=== PATIENT | female | born 1970 | race Caucasian/White ===

== ENCOUNTER 2016-08-03 22:09 | Emergency (ER) | payer OTHER ==
[~2016-08-03] VITALS: Ht 154.9 cm; Wt 61.7 kg
[~2016-08-03 22:09] MED LIST: DIAZ-165 PO; ELET40TA PO; ESCI1TAB18 PO; LEVOIUD PV; MEPE1TAB PO; ONDA4TAB7 SL
[2016-08-03 22:11] VITALS: TEMP 36.8; Ht 154.9 cm; Wt 61.7 kg
[2016-08-03] MEDS ORDERED: KETOROLAC TROMETHAMINE 60 MG/2 ML VIAL IM STA (22:25)
[2016-08-03] MEDS ORDERED: MoRPHine SULFATE 10 MG/ML CARP/VIAL IM STA (22:25)
[2016-08-03] MEDS ORDERED: PROMETHAZINE HCL INJ 25 MG/ML 1 ML VIAL IM STA (22:25)
[2016-08-03] MEDS ORDERED: HYDR-4079 PO (23:05)
[2016-08-03] MEDS ORDERED: SUMA1INJ5 SC (23:05)
[2016-08-03] MEDS ORDERED: RIZA10TA18 PO (23:05)
--- NOTE | 2016-08-03 23:52 | EMERGENCY ROOM VISIT NOTE ---
History Report prepared by Aria: Mckenzie Robin Under the Supervision of: Dr. Paul Shirley D.O. First contact with patient: 22:15 Chief Complaint: HEADACHE Stated Complaint: MIGRAINE History of Present Illness The patient is a 45 year old female who presents to the Emergency Room with complaints of worsening headache with onset this morning. She rates her pain as a 10/10. The patient states that the headache started gradually and got worse. The patient notes that this migraine is located on the left side of her head. The patient states that she has a history of migraines and relates that this migraine is like previous migraines. She relates that she often has migraines, as often as 3-4 days per week. The patient had a Botox shot this morning through pain management. She has nausea and is sensitive to light. She denies any focal weaknesses, fevers. She notes that this headache is unchanged from previous headaches in anyway. No neck stiffness. No fevers greater than 100.4. Source of History: patient Onset: this morning Position: head Symptom Intensity: 10/10 Quality: other (headache) Timing: worsening Associated Symptoms: + nausea, No fevers, No weakness Note: She is sensitive to light. Review of Systems See HPI for pertinent positives & negatives. A total of 10 systems reviewed and were otherwise negative. Past Medical & Surgical Medical Problems: (1) Kidney stone (2) Migraine (3) Tonsillectomy Family History Cancer Diabetes mellitus FH: migraines Gallbladder disease Hypertension Kidney disease Kidney stones Lung disease Social History Smoking Status: Never Smoker Alcohol Use: occasionally Drug Use: none Marital Status: in relationship Housing Status: lives with family, lives with significant other Occupation Status: employed Current/Historical Medications Scheduled Escitalopram Oxalate (Lexapro), 40 MG PO DAILY Hydrocodone/Acetaminophen 10MG/325MG ([place] 10MG/325MG), 1 TABLET PO BID Levonorgestrel (Iud) (Mirena), 20 MCG PV CONTINOUS Scheduled PRN Diazepam (Valium), 5 MG PO DAILY PRN for UNDECIDED Eletriptan (Relpax), 40 MG PO UD PRN for Migraine Meperidine Hcl (Demerol), 50 MG PO UD PRN for Headache Ondansetron (Zofran Odt), 4 MG SL Q6H PRN for Nausea Rizatriptan Benzoate (Maxalt), 10 MG PO DAILY PRN for Migraine Sumatriptan Succinate (Sumatriptan Succinate), 0.5 ML SC UD PRN for Migraine Allergies Coded Allergies: Hydromorphone (Verified Allergy, Mild, "FELT LIKE SKIN WAS CRAWLING", 08/11) Physical Exam Vital Signs Date Time Temp Pulse Resp B/P Pulse Ox O2 Delivery O2 Flow Rate FiO2 08/03/16 22:11 36.8 85 20 122/84 95 Room Air Physical Exam GENERAL: Laying in bed, disheveled, nontoxic, in mild distress EYE EXAM: normal conjunctiva, PERRL and EOM's intact OROPHARYNX: no exudate, no erythema, lips, buccal mucosa, and tongue normal and mucous membranes are moist NECK: supple, no nuchal rigidity, no adenopathy, non-tender, negative Brudzinski 's. LUNGS: Clear to auscultation. Normal chest wall mechanics HEART: no murmurs, S1 normal and S2 normal ABDOMEN: abdomen soft, non-tender, normo-active bowel sounds, no masses, no rebound or guarding. BACK: Back is symmetrical on inspection and there is no deformity, no midline tenderness, no CVA tenderness. SKIN: no rashes and no bruising UPPER EXTREMITIES: upper extremities are grossly normal. LOWER EXTREMITIES: No pitting edema. NEURO EXAM: Normal sensorium, cranial nerves II-XII intact, normal speech, no weakness of arms, no weakness of legs. No drift. Finger to nose intact. Gross sensation intact. Rapid alternating movement of upper extremities intact. Medical Decision & Procedures Medications Administered Medications (Trade) Dose Ordered Sig/[facility] Route Start Time Stop Time Status Last Admin Dose Admin Morphine Sulfate (MoRPHine SULFATE INJ) 8 mg NOW STAT IM 08/03/16 22:25 08/03/16 22:27 DC 08/03/16 22:37 8 MG Promethazine HCl (Phenergan Inj) 25 mg NOW STAT IM 08/03/16 22:25 08/03/16 22:27 DC 08/03/16 22:38 25 MG Ketorolac Tromethamine (Toradol Inj) 60 mg NOW STAT IM 08/03/16 22:25 08/03/16 22:27 DC 08/03/16 22:39 60 MG ED Course ED COURSE: Vital signs were reviewed and showed normal vital signs. The patients medical record was reviewed The above diagnostic studies were performed and reviewed. ED treatments and interventions as stated above. 2215: The patient was evaluated in room C11. A complete history and physical examination was performed. 2225: Toradol 60 mg IM, Phenergan 2 mg IM, Morphine Sulfate 8 mg IM 2335: Upon reevaluation, the patient is feeling better. I discussed my findings with the patient and she understands and agrees with the treatment plan. Based on the patients age, coexisting illnesses, exam and lab findings the decision to treat as an outpatient was made. The patient remained stable while under my care. The patient appeared well at the time of discharge. Medical Decision The patient is a 45 year old female who presents to the ED with complaints of headache. Differential Diagnosis includes but is not limited to headache, tension headache, cluster headache, migraine, subarachnoid hemorrhage, meningitis, mass, central venous thrombus, concussion, trauma and epidural/ subdural hemorrhage. Patient is a 45-year-old female with past medical history of migraines and presents the ER with a headache. Headache started is morning and progressively worsened. She notes that she had injections of Botox today for her migraines. She notes that this headache feels extremely similar to her previous headaches. She denies any focal weakness. She is completely neurologically intact. No nuchal rigidity. No signs of meningitis or encephalitis on exam. Vitals are stable. Patient was given IM Toradol, morphine and Phenergan. She had improvement of her symptoms. History of present illness was not consistent with SAH. Patient was discharged follow-up with primary care doctor and should not drive, work, operate heavy machinery for the next 12 hours. Discussed with Pt concerning signs and symptoms to watch out for. Pt was instructed to follow up with their PCP and discussed with the patient their option to return to the ED at anytime for persistent or worsening symptoms. The appropriate anticipatory guidance and out-patient management, including indications for return to the emergency department, were explained at length to the patient and understood. Impression Primary Impression: Cephalgia Scribe Attestation The scribe's documentation has been prepared under my direction and personally reviewed by me in its entirety. I confirm that the note above accurately reflects all work, treatment, procedures, and medical decision making performed by me. Departure Information Dispostion Home / Self-Care Referrals Clara Holguin, C.R.N.P. (PCP) Forms HOME CARE DOCUMENTATION FORM, IMPORTANT VISIT INFORMATION Patient Instructions A Signature Page, My [facility] Additional Instructions Please follow up with your primary care doctor with in the next 24 hours. Any worsening of your symptoms, please return to the ED immediately. This includes any fevers greater than 100.4, stiff neck, worsening neck pain, confusion, difficulty ambulating, or any other concerning signs or symptoms from your standpoint. Please do not drive, work, operate heavy machinery for the next 12 hours as your given narcotics. Problem Qualifiers Primary Impression: Cephalgia Headache type: unspecified Headache chronicity pattern: acute headache Intractability: not intractable Qualified Codes: R51 - Headache
[2016-08-04 00:08] VITALS: BP 107/67; PULSE 80; O2SAT 97
== END 2016-08-04 00:09 | disposition home or self-care (01) ==
LOC: C.EDB 22:09 → C.EDC 08-04 00:09
DX: G43.719 Chronic migraine without aura, intractable, without status migrainosus (principal); Z87.442 Personal history of urinary calculi; Z83.3 Family history of diabetes mellitus; Z82.49 Family history of ischemic heart disease and other diseases of the circulatory system; Z84.1 Family history of disorders of kidney and ureter; Z79.899 Other long term (current) drug therapy; M54.81 Occipital neuralgia; M79.1 Myalgia; F41.9 Anxiety disorder, unspecified

== ENCOUNTER → 2016-09-15 | Outpatient (CLI) | payer OTHER ==
[~2016-09-15] MED LIST changes: +HYDR-4079 PO; +RIZA10TA18 PO; +SUMA1INJ5 SC; +ZFRODT/8 SL
--- NOTE | 2016-09-15 15:33 | MAMMOGRAPHY REPORT ---
BILATERAL DIGITAL SCREENING MAMMOGRAM TOMOSYNTHESIS WITH CAD: 09/15/2016 CLINICAL HISTORY: Routine screening. Patient has no complaints. TECHNIQUE: Breast tomosynthesis in addition to standard 2D mammography was performed. Current study was also evaluated with a Computer Aided Detection (CAD) system. COMPARISON: Comparison is made to exams dated: 09/10/2015 mammogram, 08/15/2014 mammogram, 09/03/2014 ultrasound, 09/05/2012 ultrasound, 09/30/2010 mammogram - [facility], and 04/02/2009. BREAST COMPOSITION: The tissue of both breasts is extremely dense, which lowers the sensitivity of mammography. FINDINGS: There are a few bilateral benign-appearing microcalcifications and coarse calcifications. No new suspicious mass, architectural distortion or cluster of suspicious microcalcifications is se en. IMPRESSION: ACR BI-RADS CATEGORY 1: NEGATIVE There is no mammographic evidence of malignancy. A 1 year screening mammogram is recommended. The p atient will receive written notification of the results. Approximately 10% of breast cancers are not detected with mammography. A negative mammographic repor t should not delay biopsy if a clinically suggestive mass is present. Lani Patel M.D. ay/:09/15/2016 15:07:42 Pier Worker: Cyndi GREGORIO(Sherri)(Maxine), [facility] letter sent: Normal 1/2 BI-RADS Code: ACR BI-RADS Category 1: Negative
== END | disposition home or self-care (01) ==
LOC: C.MAMM 08:17
PROVIDERS: ATTEND Obstetrics & Gynecology
DX: Z12.31 Encounter for screening mammogram for malignant neoplasm of breast (principal)

== ENCOUNTER 2016-10-23 22:46 | Emergency (ER) | payer OTHER ==
[~2016-10-23] VITALS: Ht 154.9 cm; Wt 60.6 kg
[~2016-10-23 22:46] MED LIST changes: -ZFRODT/8 SL
[2016-10-23 22:47] VITALS: TEMP 36.7; Ht 154.9 cm; Wt 60.6 kg
[2016-10-23] MEDS ORDERED: MoRPHine SULFATE 10 MG/ML CARP/VIAL IM STA (22:59)
[2016-10-23] MEDS ORDERED: PROMETHAZINE HCL INJ 25 MG/ML 1 ML VIAL IM STA (22:59)
[2016-10-23] MEDS ORDERED: KETOROLAC TROMETHAMINE 60 MG/2 ML VIAL IM STA (22:59)
[2016-10-23] MEDS ORDERED: ZFRODT/8 SL (23:07)
[2016-10-23 23:32] VITALS: BP 121/72; PULSE 78; O2SAT 96
--- NOTE | 2016-10-24 00:43 | EMERGENCY ROOM VISIT NOTE ---
ED Visit Note First contact with patient: 22:52 CHIEF COMPLAINT: Migraine headache HISTORY OF PRESENT ILLNESS: This 46-year-old female patient presented to the emergency department with a gradual onset of a severe generalized headache that started earlier today. The patient states the migraine is similar to their typical migraines. There has been associated photophobia, phonophobia, nausea and vomiting. The patient denies fever or chills recently, and there is no weakness or numbness of the extremities. There is no difficulty with speech or vision. No trauma to the head and no neck pain. The pain is severe, constant, and it is slowly increasing in severity. The patient rates the pain as dull and 9/10. The patient has taken Imitrex at home without relief. This is not the worst headache of the life and is similar to previous migraines. Previous imaging studies of the brain have been normal. REVIEW OF SYSTEMS: A review of systems was performed with positives and pertinent negatives listed in the history of present illness. All other systems were reviewed and are negative. ALLERGIES: Dilaudid MEDICATIONS: See EMR PMH: History of chronic migraines SOCIAL HISTORY: Lives locally family PHYSICAL EXAM: Vital Signs: Reviewed Nurse's notes, vital signs stable. GENERAL: White female, who appears in pain, but non toxic in appearance and in no acute distress. MENTAL STATUS: Alert, oriented, and coherent. HEENT: Normocephalic. PERRLA. EOMI. Nares patent without nuchal rigidity. Tympanic membranes pearly franklin without erythema or effusion bilaterally. Mucous membranes moist. NECK: Supple, no nuchal rigidity, nontender, no lymphadenopathy. HEART: Regular rhythm and normal rate without murmurs, ectopy, gallops, or rubs. LUNGS: Clear to auscultation bilaterally without wheezes, rales or rhonchi. No dullness to percussion. No accessory muscle use. No retractions. SKIN: Normal. NEUROLOGICAL: Pupils are round, equal and react to light. The optic fundi are normal and the discs are flat. The patient moves all extremities well and the gait is normal. EMERGENCY DEPARTMENT COURSE: Physical history were performed. Nursing notes and EMR were reviewed. The patient appears to have a migraine headache that began earlier today. On review of EMR, the patient has a history of several visits for migraines, often 3-4 times annually. The patient does follow with the pain clinic, and undergoes Botox which seems to do well for her. She attempted her normal medication at home, and did not have relief of her symptoms. This is not the worst headache of her life. I discussed options of care with the patient, and elected to provide her 8 mg IM morphine, 60 mg IM Toradol, and 25 mg IM Phenergan. The patient is to follow with her primary care physician or neurologist this week for further care and management. She was otherwise invited back to the ER with any new, worsening, or concerning symptoms. The differential diagnosis includes acute intracranial bleed, meningitis, encephalitis, mass or mass effect, sinusitis, infection, tumor, headache, temporal arteritis and carbon monoxide exposure, and migraine. The patient was discharged home in stable condition with a female missile technician driving. Problem List Medical Problems: (1) Kidney stone Status: Resolved (2) Migraine Status: Chronic (3) Tonsillectomy Status: Resolved Current/Historical Medications Scheduled Escitalopram Oxalate (Lexapro), 40 MG PO DAILY Hydrocodone/Acetaminophen 10MG/325MG ([place] 10MG/325MG), 1 TABLET PO BID Levonorgestrel (Iud) (Mirena), 20 MCG PV CONTINOUS Scheduled PRN Diazepam (Valium), 5 MG PO DAILY PRN for UNDECIDED Eletriptan (Relpax), 40 MG PO UD PRN for Migraine Meperidine Hcl (Demerol), 50 MG PO UD PRN for Headache Ondansetron (Ondansetron Odt), 4 MG SL Q6H PRN for Nausea Rizatriptan Benzoate (Maxalt), 10 MG PO DAILY PRN for Migraine Sumatriptan Succinate (Sumatriptan Succinate), 0.5 ML SC UD PRN for Migraine Allergies Coded Allergies: Hydromorphone (Verified Allergy, Mild, "FELT LIKE SKIN WAS CRAWLING", ) Vital Signs Date Time Temp Pulse Resp B/P Pulse Ox O2 Delivery O2 Flow Rate FiO2 10/23/16 23:32 78 16 121/72 96 Room Air 10/23/16 22:47 36.7 87 20 116/72 95 Room Air Medications Administered Medications (Trade) Dose Ordered Sig/[place] Route Start Time Stop Time Status Last Admin Dose Admin Morphine Sulfate (MoRPHine SULFATE INJ) 8 mg NOW STAT IM 10/23/16 22:59 10/23/16 23:00 DC 10/23/16 23:06 8 MG Promethazine HCl (Phenergan Inj) 25 mg NOW STAT IM 10/23/16 22:59 10/23/16 23:00 DC 10/23/16 23:06 25 MG Ketorolac Tromethamine (Toradol Inj) 60 mg NOW STAT IM 10/23/16 22:59 10/23/16 23:00 DC 10/23/16 23:07 60 MG Departure Information Impression Primary Impression: Migraine Dispostion Home / Self-Care Condition GOOD Referrals No Doctor, Assigned Forms HOME CARE DOCUMENTATION FORM, IMPORTANT VISIT INFORMATION Patient Instructions My [facility] Additional Instructions You were seen and evaluated today on an emergency basis only. This is not a substitute for, or an effort to provide, complete comprehensive medical care. It is not possible to recognize and treat all injuries or illnesses in a single emergency department visit. For this reason it is recommended that you followup with your primary care physician or neurologist this week for ongoing care and evaluation. DO NOT drive, drink alcohol, operate machinery, or perform dangerous activities today. You were given medications in the ER that can affect your ability to safely function or operate a vehicle. Rest today in a quiet, peaceful, dark environment and get a full 8-10 hrs of sleep tonight. Avoid loud noises, smoke/smoking, alcohol, bright lights, stress, or physical exertion today to minimize the chance the headache may return. Continue current medications. Ibuprofen(Motrin, Advil) may be used for fever or pain. Use 600mg every six hours as needed. Take with food. Avoid using more than 2400mg in a 24 hour period. Do not use 2400mg per day for more than three consecutive days without physician direction. Prolonged inappropriate use can lead to stomach upset or ulcers. (AND/OR) Acetaminophen(Tylenol) may be used for fever or pain. Use 1000mg every six hours as needed. Avoid using more than 4000mg in a 24 hour period. Return to the ER for passing out, worsening headache, vision problems, neck stiffness/pain, fevers, vomiting, worsening of your condition, or as needed.
== END 2016-10-23 23:35 | disposition home or self-care (01) ==
LOC: C.EDB 22:46
DX: G43.909 Migraine, unspecified, not intractable, without status migrainosus (principal)

== ENCOUNTER → 2016-11-03 | Outpatient (CLI) | payer OTHER ==
[~2016-11-03] MED LIST changes: -ONDA4TAB7 SL; +ZFRODT/8 SL
--- NOTE | 2016-11-03 12:45 | DIAGNOSTIC IMAGING REPORT ---
CERVICAL SPINE 7 VIEWS with flexion and extension views HISTORY: Neck pain. Cervicalgia, cervical FACET SYNDROME COMPARISON: None. FINDINGS: The cervical spine is visualized from C1 through the superior endplate of T1. There is no fracture. 1.5 mm of anterolisthesis of C4 and C5. Severe disc space narrowing and endplate osteophytes at C5-C6. There are also endplate osteophytes at C6-C7. Mild facet degenerative changes within the upper cervical spine. Moderate left and mild right neural foraminal narrowing at C5-C6. The alignment is not significantly change during flexion or extension. Prevertebral soft tissues and the atlantodens interval are intact. IMPRESSION: 1. Approximately 1.5 mm of anterolisthesis of C4 on C5. The alignment is not significantly changed on flexion or extension. 2. Severe degenerative disease at C5-C6. 3. Mild facet degenerative changes within the upper cervical spine. Electronically signed by: Sammy Butt M.D. 11/03/2016 12:43 PM Dictated Date/Time: 11/03/2016 12:36 PM
== END | disposition home or self-care (01) ==
LOC: C.RADBC 09:40
PROVIDERS: ATTEND Physician Assistant
DX: M53.82 Other specified dorsopathies, cervical region (principal); M50.322 Other cervical disc degeneration at C5-C6 level; M43.12 Spondylolisthesis, cervical region

== ENCOUNTER → 2017-04-21 | Outpatient (CLI) | payer OTHER ==
--- NOTE | 2017-04-21 12:01 | DIAGNOSTIC IMAGING REPORT ---
KUB CLINICAL HISTORY: 46 years-old Female presenting with N20.0 Kidney stone on left [id number]. TECHNIQUE: Single supine view of the abdomen was obtained. COMPARISON: 11/06/2015. FINDINGS: Moderate stool burden throughout the mildly distended colon degrades evaluation of the kidneys and allowing for this limitation, the previously noted left renal calculus remains apparent, however, the potential right renal calculus is obscured or has passed. Multiple pelvic phleboliths unchanged in distribution. An intrauterine device remains present. Osseous structures normal. IMPRESSION: 1. Moderate stool burden in mildly distended colon degrades evaluation. 2. Stable left renal calculus. Nonvisualization of the potential right renal calculus seen on prior exam, possibly obscured or indicating passage. Electronically signed by: Skyler Alvarado M.D. 04/21/2017 12:00 PM Dictated Date/Time: 04/21/2017 11:58 AM
== END | disposition home or self-care (01) ==
LOC: C.RAD 11:24
PROVIDERS: ATTEND Urology
DX: N20.0 Calculus of kidney (principal)

== ENCOUNTER → 2017-05-23 | Outpatient (CLI) | payer OTHER | END | disposition home or self-care (01) | LOC: C.LAB1850 11:43 | PROVIDERS: ATTEND Nurse Practitioner Adult Health | DX: R30.0 Dysuria (principal) ==

== ENCOUNTER 2017-08-25 20:16 | Emergency (ER) | payer OTHER ==
[~2017-08-25] VITALS: Ht 154.9 cm; Wt 64.9 kg
[~2017-08-25 20:16] MED LIST changes: -ELET40TA PO; -HYDR-4079 PO; +LEVO1IUD2 INT UTER; -LEVOIUD PV; -MEPE1TAB PO; -RIZA10TA18 PO; -SUMA1INJ5 SC; -ZFRODT/8 SL
[2017-08-25 20:28] VITALS: TEMP 36.9; Ht 154.9 cm; Wt 64.9 kg
[2017-08-25] MEDS ORDERED: KETOROLAC TROMETHAMINE 30 MG/ML VIAL IV STA (20:42)
[2017-08-25] MEDS ORDERED: DiphenhydrAMINE HCL 50 MG/ML VIAL IV STA (20:42)
[2017-08-25] MEDS ORDERED: PROCHLORPERAZINE 5 MG/ML 2 ML VIAL IV STA (20:42)
[2017-08-25] MEDS ORDERED: SODIUM CHLORIDE 0.9% 1000ML 1,000 ML IV STA (20:42)
[2017-08-25] MEDS ORDERED: MEPE1TAB PO (21:14)
[2017-08-25] MEDS ORDERED: ELET40TA PO (21:14)
[2017-08-25] MEDS ORDERED: LXP/20 PO (21:17)
[2017-08-25] MEDS ORDERED: KETO10TA PO (22:08)
--- NOTE | 2017-08-25 22:10 | EMERGENCY ROOM VISIT NOTE ---
ED Visit Note First contact with patient: 20:32 CHIEF COMPLAINT: Migraine headache HISTORY OF PRESENT ILLNESS: This 46-year-old female patient presented to the emergency department ambulatory, with a male friend, with a gradual onset of a severe generalized headache that started approximately one month ago. The patient states the migraine is similar to their typical migraines. There has been associated photophobia, phonophobia, nausea and vomiting. The patient denies fever or chills recently, and there is no weakness or numbness of the extremities. There is no difficulty with speech or vision. No trauma to the head and no neck pain. The pain is severe, constant, and it is slowly increasing in severity. The patient rates the pain as throbbing and 8/10. Over the past month, the patient has taken Relpax, Maxalt, Imitrex, Vicodin, and she did have a Botox injection performed today. This is not the worst headache of the life and is similar to previous migraines. Previous imaging studies of the brain have been normal. REVIEW OF SYSTEMS: A review of systems was performed with positives and pertinent negatives listed in the history of present illness. All other systems were reviewed and are negative. ALLERGIES: Hydromorphone MEDICATIONS: Demerol, Relpax, Valium, Imitrex, Addis, Maxalt, Lexapro PMH: Migraines SOCIAL HISTORY: The patient lives locally with family. She denies drug, alcohol , tobacco use. PHYSICAL EXAM: Vital Signs: Reviewed Nurse's notes, vital signs stable. GENERAL : This is a 46-year-old white female, who appears in pain, but non toxic in appearance and in no acute distress. MENTAL STATUS: Alert, oriented, and coherent. HEENT: Normocephalic. PERRLA. EOMI. Nares patent without nuchal rigidity. Tympanic membranes pearly franklin without erythema or effusion bilaterally. Mucous membranes moist. NECK: Supple, no nuchal rigidity, nontender, no lymphadenopathy. HEART: Regular rhythm and normal rate without murmurs, ectopy, gallops, or rubs. LUNGS: Clear to auscultation bilaterally without wheezes, rales or rhonchi. No dullness to percussion. No accessory muscle use. No retractions. SKIN: Normal. NEUROLOGICAL: Pupils are round, equal and react to light. The optic fundi are normal and the discs are flat. The patient moves all extremities well and the gait is normal. EMERGENCY DEPARTMENT COURSE: I examined the patient. I did review the patient' s previous EMR, and noted that she has been given morphine, Toradol, and Phenergan in the past for her migraines. I did discuss with the patient that he ED protocol is to avoid narcotics and chronic migraine patient's if possible. I offered the patient IV fluids, Toradol, Compazine, and Benadryl as a first line treatment for her migraine. She was agreeable. The patient was given these medications. Upon reassessment, she is upright, moving around in the bed, and states her headache is somewhat better, but now her back hurts. She did not receive the entire bolus of IV fluids, but states she would like to go home. The patient was encouraged to follow up outpatient with her PCP and/ or neurologist for further management. She was given a prescription for Toradol to take at home for her migraine. Discharge instructions reviewed, and the patient was discharged home in good condition. The differential diagnosis includes acute intracranial bleed, meningitis, encephalitis, mass or mass effect, sinusitis, infection, tumor, headache, temporal arteritis and carbon monoxide exposure, and migraine. The patient was discharged home in stable condition with [] driving. I attest that I have personally reviewed the patient's current medication list. Patient was found to have normal blood pressure on screening and does not require follow-up. DIAGNOSIS: Migraine headache Problem List Medical Problems: (1) Kidney stone Status: Resolved (2) Migraine Status: Chronic (3) Tonsillectomy Status: Resolved Current/Historical Medications Scheduled Escitalopram Oxalate (Escitalopram Oxalate), 40 MG PO DAILY Hydrocodone/Acetaminophen 10MG/325MG (Addis 10MG/325MG), 1 TABLET PO BID Ketorolac Tromethamine (Toradol), 1 TAB PO TID Levonorgestrel (Iud) (Mirena), 20 MCG INT UTER CONTINOUS Scheduled PRN Diazepam (Valium), 5 MG PO DAILY PRN for Anxiety Eletriptan (Relpax), 40 MG PO UD PRN for Migraine Meperidine Hcl (Demerol), 50 MG PO UD PRN for Headache Ondansetron (Ondansetron Odt), 4 MG SL Q6H PRN for Nausea Rizatriptan Benzoate (Maxalt), 10 MG PO DAILY PRN for Migraine Sumatriptan Succinate (Sumatriptan Succinate), 0.5 ML SC UD PRN for Migraine Allergies Coded Allergies: Hydromorphone (Verified Allergy, Mild, "FELT LIKE SKIN WAS CRAWLING", 01/12) Vital Signs Date Time Temp Pulse Resp B/P (MAP) Pulse Ox O2 Delivery O2 Flow Rate FiO2 08/25/17 22:22 76 20 128/72 98 08/25/17 20:28 36.9 74 16 132/90 96 Room Air Medications Administered Medications (Trade) Dose Ordered Sig/[place] Route Start Time Stop Time Status Last Admin Dose Admin Ketorolac Tromethamine (Toradol Inj) 30 mg NOW STAT IV 08/25/17 20:42 08/25/17 20:46 DC 08/25/17 21:13 30 MG Prochlorperazine Edisylate (Compazine Inj) 10 mg NOW STAT IV 08/25/17 20:42 08/25/17 20:46 DC 08/25/17 21:13 10 MG Diphenhydramine HCl (Benadryl Inj) 50 mg NOW STAT IV 08/25/17 20:42 08/25/17 20:46 DC 08/25/17 21:12 50 MG Sodium Chloride 1,000 ml @ 999 mls/hr Q1H1M STAT IV 08/25/17 20:42 08/25/17 21:42 DC 08/25/17 21:13 999 MLS/HR Departure Information Impression Primary Impression: Migraine Dispostion Home / Self-Care Condition GOOD Prescriptions Ketorolac Tromethamine (TORADOL) 10 Mg Tab 1 TAB PO TID for 5 Days, #15 TAB Prov: Jessica Ndiaye PA-C 08/25/17 Referrals No Doctor, Assigned (PCP) Patient Instructions ED Headache Migraine, My [facility] Additional Instructions DO NOT drive, drink alcohol, operate machinery, or perform dangerous activities today. You were given medications in the ER that can affect your ability to safely function or operate a vehicle. Rest today in a quiet, peaceful, dark environment and get a full 8-10 hrs of sleep tonight. Avoid loud noises, smoke/smoking, alcohol, bright lights, stress, or physical exertion today to minimize the chance the headache may return. Continue current medications as prescribed. You were given a prescription of Toradol to be taken 3 times daily for the next 3-5 days. DO NOT TAKE OTHER NSAIDS (Ibuprofen, Naproxen, naprosyn, Advil, Motrin , Aleve) WHILE ON THIS MEDICATION. Ibuprofen(Motrin, Advil) may be used for fever or pain. Use 600mg every six hours as needed. Take with food. Avoid using more than 2400mg in a 24 hour period. Do not use 2400mg per day for more than three consecutive days without physician direction. Prolonged inappropriate use can lead to stomach upset or ulcers. DO NOT TAKE THIS MEDICATION WHILE TAKING TORADOL. (AND/OR) Acetaminophen(Tylenol) may be used for fever or pain. Use 1000mg every six hours as needed. Avoid using more than 3000mg in a 24 hour period. Return to the ER for passing out, worsening headache, vision problems, neck stiffness/pain, fevers, vomiting, worsening of your condition, or as needed. Follow up with your primary physician in 2-3 days for a recheck of your current condition. Problem Qualifiers Primary Impression: Migraine Migraine type: without aura Status migrainosus presence: with status migrainosus Intractability: intractable Qualified Codes: G43.011 - Migraine without aura, intractable, with status migrainosus
[2017-08-25 22:22] VITALS: BP 128/72; PULSE 76; O2SAT 98
[2017-08-25] MEDS ORDERED: SUMA1INJ5 SC (23:05)
[2017-08-25] MEDS ORDERED: RIZA10TA18 PO (23:05)
[2017-08-25] MEDS ORDERED: HYDR-4079 PO (23:05)
[2017-08-25] MEDS ORDERED: ZFRODT/8 SL (23:07)
== END 2017-08-25 22:23 | disposition home or self-care (01) ==
LOC: C.EDB 20:17 → C.EDD 22:23
DX: G43.011 Migraine without aura, intractable, with status migrainosus (principal)

== ENCOUNTER → 2017-09-06 | Outpatient (CLI) | payer OTHER ==
[~2017-09-06] MED LIST changes: +ELET40TA PO; -ESCI1TAB18 PO; +HYDR-4079 PO; +LXP/20 PO; +MEPE1TAB PO; +RIZA10TA18 PO; +SUMA1INJ5 SC; +ZFRODT/8 SL
== END | disposition home or self-care (01) ==
LOC: C.LABBFT 12:20
PROVIDERS: ATTEND Nurse Practitioner
DX: J02.9 Acute pharyngitis, unspecified (principal)

== ENCOUNTER → 2017-11-10 | Outpatient (CLI) | payer OTHER ==
--- NOTE | 2017-11-10 11:51 | DIAGNOSTIC IMAGING REPORT ---
KUB CLINICAL HISTORY: NEPHROLITHIASIS COMPARISON STUDY: 04/21/2017 FINDINGS: There is no pathologic bowel dilatation. An IUD is again visualized. Pelvic basin calcifications remain unchanged in orientation favoring phleboliths. There is a 7 mm linear calcification projected over the left kidney suspicious for a calculus. IMPRESSION: Stable left renal calculus. Electronically signed by: Ward Peterson M.D. 11/10/2017 11:49 AM Dictated Date/Time: 11/10/2017 11:48 AM
== END | disposition home or self-care (01) ==
LOC: C.RAD 11:30
PROVIDERS: ATTEND Urology
DX: N20.0 Calculus of kidney (principal)

== ENCOUNTER 2018-08-31 12:58 | Inpatient (IN) ==
[2018-08-31] MEDS ORDERED: ONDANSETRON INJ 2 MG/ML 2 ML VIAL IV STA (14:05)
[2018-08-31] MEDS ORDERED: SODIUM CHLORIDE 0.9% 1000ML 1,000 ML IV ONE (14:05)
[2018-08-31] MEDS ORDERED: ACETAMINOPHEN 1000 MG/100 ML IV IV STA (14:05)
[2018-08-31] MEDS ORDERED: KETOROLAC TROMETHAMINE 15 MG/ML VIAL IV STA (14:05)
[2018-08-31 14:10] LABS: Basophils # (auto) 0.05 K/uL (0-0.2); Basophils % (auto) 0.5 %; Eosinophils # (auto) 0.08 K/uL (0-0.5); Eosinophils % (auto) 0.8 %; Hematocrit (blood only) 42.5 % (37-47); Hemoglobin 13.7 g/dL (12.0-16.0); Immature Granulocytes # (auto) 0.02 K/uL (0.00-0.02); Immature Granulocytes % (auto) 0.2 %; Lymphocytes # (auto) 1.29 K/uL (1.2-3.4); Lymphocytes % (auto) 13.5 %; Mean Corpuscular Hgb Conc 32.2 g/dL (32-36); Mean Platelet Volume 10.6 fL (7.4-10.4); Monocytes # (auto) 0.81 K/uL (0.11-0.59); Monocytes % (auto) 8.5 %; Neutrophils # (auto) 7.28 K/uL (1.4-6.5); Neutrophils % (auto) 76.5 %; Platelet Count 284 K/uL (130-400); RDW Coefficient of Variation 14.8 % (11.5-14.5); Red Blood Count 4.72 M/uL (4.2-5.4); White Blood Count 9.53 K/uL (4.8-10.8)
[2018-08-31 14:13] LABS: Partial Thromboplastin Ratio 1.1; Partial Thromboplastin Time 27.5 Seconds (21.0-31.0); Prothrombin Time 10.3 Seconds (9.0-12.0)
[2018-08-31 14:20] LABS: Alanine Aminotransferase 114 U/L (12-78); Albumin Level 3.7 gm/dl (3.4-5.0); Aspartate Aminotransferase 86 U/L (15-37); BUN Creatinine Ratio 10.9 (10-20); Blood Urea Nitrogen 11 mg/dl (7-18); Calcium 8.6 mg/dl (8.5-10.1); Carbon Dioxide 28 mmol/L (21-32); Chloride 104 mmol/L (98-107); Creatinine Clr Calc Pharmacy 58.5 ml/min; Est GFR (African American) 74.8; Est GFR (Non-African American) 64.5; Glucose 112 mg/dl (70-99); Potassium 3.5 mmol/L (3.5-5.1); Sodium 139 mmol/L (136-145)
[2018-08-31 14:25] LABS: Albumin Globulin Ratio 0.9 (0.9-2); Alkaline Phosphatase 101 U/L (45-117); Bilirubin,Total 0.5 mg/dl (0.2-1); Total Protein 7.7 gm/dl (6.4-8.2); Troponin I < 0.015 ng/ml (0-0.045)
--- NOTE | 2018-08-31 14:31 | XRay Report ---
XR chest 1V portable HISTORY: 47 years-old Female CP acute atypical chest pain COMPARISON: KUB of same day, chest radiograph 08/21/2018 TECHNIQUE: Portable AP view of the chest FINDINGS: Cardiomediastinal and hilar silhouettes are within normal limits. Minimal linear subsegmental left ba silar atelectasis. No pneumothorax, pleural effusion, focal airspace consolidation or overt pulmonary edema. Bones of the chest appear grossly intact. IMPRESSION: No acute process. The above report was generated using voice recognition software. It may contain grammatical, syntax o r spelling errors. Electronically signed by: Hema Caceres M.D. 08/31/2018 2:30 PM
--- NOTE | 2018-08-31 14:34 | XRay Report ---
KUB CLINICAL HISTORY: left stent COMPARISON STUDY: CT of the abdomen and pelvis September 16, 2018. FINDINGS: A left ureteral stent is in place. Pelvic calcifications are unchanged and favor phlebolith s. Left renal calculi shown on CT of August 16, 2018 are not visualized on this exam, possibly due t o technique. Bowel gas pattern is normal. Intrauterine device is incidentally noted. IMPRESSION: 1. Left ureteral stent in place. No ureteral calculi identified. 2. Left renal calculi on CT of August 16, 2018 not visualized on this exam, possibly due to techniqu e. Electronically signed by: Harvey Landa M.D. 08/31/2018 2:32 PM
[2018-08-31 15:03] LABS: Appearance Urine Cloudy (Clear); Color Urine Orange
[2018-08-31 15:04] LABS: Specific Gravity Urine 1.021 (1.000-1.060)
[2018-08-31 15:07] LABS: Epithelial Cell Urine >30 /lpf (0-5); RBC Urine >30 /hpf (0-4); WBC Urine >30 /hpf (0-5)
[2018-08-31 15:08] LABS: Bacteria Urine 4+ (Negative)
--- NOTE | 2018-08-31 15:36 | Ultrasound Report ---
US renal/blad retro comp CLINICAL HISTORY: 47 years-old Female presenting with left stent, possible hydro. TECHNIQUE: Real-time grayscale and limited color Doppler ultrasound imaging of the kidneys and bladde r was performed. COMPARISON: Plain radiograph from earlier today, CT from 08/16/2018 and ultrasound from 05/12/2018. FINDINGS: Right kidney: Cortical thinning may be present. Right kidney measures 10.6 cm. No hydronephrosis. No sonographic evidence of calculus or mass. Left kidney: Normal echogenicity of renal parenchyma. Left kidney measures 11.1 cm. Mild pelvocaliect asis new from prior CT. No sonographic evidence of calculus or mass though calculi are present as dem onstrated on recent CT. Bladder: Incompletely distended resulting in apparent circumferential wall thickening. The left urete ral stent may be present in the urinary bladder though this is not well depicted. Bilateral ureteral jets not visualized. Other: None. IMPRESSION: 1. Mild left hydronephrosis. Poor visualization of the left ureteral stent. Electronically signed by: Skyler Alvarado M.D. 08/31/2018 3:35 PM
[2018-08-31] MEDS ORDERED: cefTRIAXone SODIUM 1,000 MG/50 ML BAG IV STA (15:45)
--- NOTE | 2018-08-31 16:11 | Emergency Department Note ---
Entered by Yvette Dorsey acting as a scribe for Fidencio Sharma MD History of Present Illness General Chief complaint: Fever Stated complaint: VOMITING,FEVER, HAD KIDNEY STONES REMOVED Time Seen by Provider: 08/31/18 13:57 Source: patient Mode of arrival: ambulatory Limitations: no limitations History of Present Illness Provider complaint: Chest pain, N/V Onset (ago): hour(s) greater than 10 Location: chest and abdomen Severity: moderate Maximum Pain Intensity: 5 Associated symptoms: + other (sweating, SOB, left flank pain) Treatments prior to arrival: other (percocet @ 0600) Patient is a 47 year old female presenting to the ED with chest pain and nausea/ vomiting. Patient states that she awoke in the middle of the night with chest pain. She notes that she started to have chest pain, which radiated across the chest and down the left arm. She describes this pain as pressure, rated a 7/10 , and it lasted for x1 hour. She shares she did try to sit in a chair to help subside the symptoms, but no improvement was made. She adds she did have associated sweating and SOB during the chest pains duration. Patient shares that she then fell back asleep after the episode, and awoke at 0600 with nausea and fever, and took x1 dose of her Percocet. At about 0800, she notes she was nauseous and started vomiting. She adds she had a fever of 101. Patient shares that she called her urologist, Dr. Mckinney, who was out of the office. His partner told her to report to the ED. Patient shares that she did have a basket procedure on her left flank region for 2 kidney stones x3 days ago. Patient states she did have a stent placed at the time of the procedure, and is scheduled to have it removed on 09/11.She notes she is currently on Cipro, and was placed on it prior to her procedure. She notes that she is unsure when she is scheduled to stop her Cipro. She also shares she did receive IV antibiotics before and during the procedure. Patient shares she still does have mild left flank discomfort, but denies any diarrhea, return of CP, or any other complaints or concerns at this time. She denies any personal or family history of [place]. She denies any personal history of high cholesterol, HTN, or diabetes. Home Medications Home Medications Medication Instructions Recorded Confirmed Type eletriptan 40 mg tablet 40 mg PO UD PRN 06/12/18 08/31/18 History hydrocodone 10 mg-acetaminophen 1 tab PO UD PRN 06/12/18 08/31/18 History 325 mg tablet ketorolac 10 mg tablet 10 mg PO Q6H PRN 06/12/18 08/31/18 History escitalopram 10 mg tablet 20 mg PO HS tab 07/26/18 08/31/18 History Botox Injection 1 dose UD PRN 08/18/18 08/31/18 History diazepam 5 mg PO UD PRN 08/18/18 08/31/18 History erenumab-aooe 1 dose SUBCUT UD PRN 08/18/18 08/31/18 History mirabegron [Myrbetriq] 50 mg PO HS 08/18/18 08/31/18 History prednisone 20 mg PO UD PRN 08/18/18 08/31/18 History sumatriptan succinate [Imitrex] 1 dose UD PRN 08/18/18 08/31/18 History ciprofloxacin HCl [Cipro] 500 mg PO BID #10 tab 08/28/18 08/31/18 Rx oxycodone-acetaminophen [Percocet] 1 tab PO Q8H PRN #20 tab 08/28/18 08/31/18 Rx phenazopyridine [Pyridium] 200 mg PO TID PRN #20 tab 08/28/18 08/31/18 Rx Allergies Allergy/AdvReac Type Severity Reaction Status Date / Time hydromorphone Allergy Mild "FELT LIKE Verified 08/31/18 14:02 SKIN WAS CRAWLING" Past Med/Surg History Medical History Anxiety disorder (Chronic) Depressive disorder (Chronic) Frequent UTI (Chronic) PT THINKS CURRENTLY HAS ONE, PT THINKS REASON FOR UPCOMING SURGERY Headache (Chronic) MIGRAINES History of nephrolithotomy with removal of calculi (Chronic) Hypothyroidism (Chronic) NO MEDS FOR Kidney stones (Chronic) Migraine (Chronic) Neck pain (Chronic) Nephrolithiasis (Chronic) Occipital neuralgia (Chronic) TMJ (temporomandibular joint syndrome) (Chronic) NEVER LOCKS Von Willebrand's disease (Chronic) Pt reports she had bruising and blood in her eye 20+ years ago, prompting testing. Has had DDAVP with previous surgeries and childbirth. Was told it is ' mild.' Had ESWL at [facility] [place] 2014 and was given DDAVP pre-op. Surgeon aware and to coordinate care. 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 and A total of 10 systems reviewed and were otherwise negative Physical Exam Vital Signs Vital Signs - 24 hr 08/31/18 13:01 08/31/18 13:46 08/31/18 16:08 Temperature 36.9 C Temperature Source Oral Sepsis Action Taken by Nursing No Action Required Pulse Rate 100 H Pulse Rate [Finger] 81 75 Pulse Rhythm Regular Pulse Strength Normal Respiratory Rate 20 15 18 Blood Pressure 108/77 Blood Pressure [Right Arm] 130/75 111/67 Blood Pressure Mean 87 Blood Pressure Mean [Right Arm] 93 81 Blood Pressure Position [Right Arm] Pulse Oximetry 94 94 94 Oxygen Delivery Method Room Air Room Air Room Air 08/31/18 17:21 08/31/18 17:44 08/31/18 18:13 Temperature 37 C Temperature Source Oral Sepsis Action Taken by Nursing Pulse Rate Pulse Rate [Finger] 70 71 Pulse Rhythm Pulse Strength Respiratory Rate 20 20 16 Blood Pressure Blood Pressure [Right Arm] 114/70 113/74 Blood Pressure Mean Blood Pressure Mean [Right Arm] 84 87 Blood Pressure Position [Right Arm] Lying Pulse Oximetry 94 94 95 Oxygen Delivery Method Room Air Room Air Room Air GENERAL: Patient is in no acute distress. HEENT: No acute trauma, normocephalic atraumatic, mucous membranes moist, no nasal congestion, no scleral icterus. NECK: No stridor, no adenopathy, no meningismus, trachea is midline. LUNGS: Clear to auscultation bilaterally, no wheeze, no rhonchi, breath sounds equal. HEART: Without murmurs gallops or rubs, regular rate and rhythm. ABDOMEN: Soft, bowel sounds positive, no hernias, no peritonitis. Mild tenderness to left upper lateral abdomen. EXTREMITIES: No cyanosis or edema, full range of motion of all the joints without pain or difficulty, no signs for acute trauma. NEUROLOGIC: Oriented x 3, no acute motor or sensory deficits, no focal weakness. SKIN: No rash, no jaundice, no diaphoresis. Course 1359: Past medical records reviewed. The patient was evaluated in room C05, and a complete history and physical examination were performed. 1605: Updated patient on results. Urologist discussion pending. 1628: Discussed case with Dr. Patel, [facility], who recommends patient stay overnight for IV antibiotics. 1630: Discussed patient case with Dr. Friedman, who accepts patient for admission. 1636: Updated patient on results and plan for admission. Patient is agreeable to plan. Administered Medications Escitalopram Oxalate (Lexapro) 20 mg PO HS MANSI Stop: 09/30/18 20:59 Last Admin: 08/31/18 21:21 Dose: 20 mg Potassium Chloride/Sodium Chloride (Normal Saline W/20 Meq Kcl) 20 meq in 1, 000 mls @ 80 mls/hr IV .[id number] MANSI Stop: 09/30/18 20:29 Last Admin: 08/31/18 20:41 Dose: 80 mls/hr Mirabegron (Myrbetriq Er) 50 mg PO HS MANSI Stop: 09/30/18 20:59 Last Admin: 08/31/18 21:21 Dose: 50 mg Ondansetron HCl (Zofran) 4 mg IV Q6H PRN PRN Reason: Nausea Stop: 09/30/18 17:58 Last Admin: 08/31/18 20:44 Dose: 4 mg Discontinued Medications Acetaminophen (Ofirmev) 1,000 mg IV NOW STA Stop: 08/31/18 14:06 Last Admin: 08/31/18 14:22 Dose: 1,000 mg Sodium Chloride (Nss 1000ml) 1,000 mls @ 999 mls/hr IV .[id number] ONE Stop: 08/31/18 15:05 Last Infusion: 08/31/18 15:49 Dose: 0 mls/hr Admin: 08/31/18 14:22 Dose: 999 mls/hr Ceftriaxone Sodium (Rocephin) 1,000 mg in 50 mls @ 100 mls/hr IV NOW STA Stop: 08/31/18 16:14 Last Infusion: 08/31/18 17:09 Dose: 0 mls/hr Admin: 08/31/18 16:08 Dose: 100 mls/hr Ketorolac Tromethamine (Toradol) 15 mg IV NOW STA Stop: 08/31/18 14:06 Last Admin: 08/31/18 14:23 Dose: 15 mg Ondansetron HCl (Zofran) 4 mg IV NOW STA Stop: 08/31/18 14:06 Last Admin: 08/31/18 14:22 Dose: 4 mg Medical Decision Making Differential Diagnosis Differential Diagnosis includes:UTI or pyelonephritis, hydronephrosis, malpositioned stent, blocked stent, renal failure, dehydration, cardiac ischemia , reflux, viral illness Medical Records Attestation: I reviewed the patient's medical records. Home Medications Current Medication List: was personally reviewed by me Laboratory Data Attestation: I reviewed the patient's lab results. Result diagrams: 08/31/18 13:41 08/31/18 13:41 Lab Results 08/31/18 08/31/18 08/31/18 Range/Units 13:41 13:41 13:41 WBC 9.53 (4.8-10.8) K/uL RBC 4.72 (4.2-5.4) M/uL Hgb 13.7 (12.0-16.0) g/dL Hct 42.5 (37-47) % MCV 90.0 (80-100) fL MCH 29.0 (25-34) pg MCHC 32.2 (32-36) g/dL RDW Std Deviation 49.0 H (36.4-46.3) fL RDW Coeff of Kayla 14.8 H (11.5-14.5) % Plt Count 284 (130-400) K/uL MPV 10.6 H (7.4-10.4) fL Immature Gran % (Auto) 0.2 % Neut % (Auto) 76.5 % Lymph % (Auto) 13.5 % Griggs % (Auto) 8.5 % Eos % (Auto) 0.8 % Baso % (Auto) 0.5 % Immature Gran # (Auto) 0.02 (0.00-0.02) K/uL Neut # (Auto) 7.28 H (1.4-6.5) K/uL Lymph # (Auto) 1.29 (1.2-3.4) K/uL Griggs # (Auto) 0.81 H (0.11-0.59) K/uL Eos # (Auto) 0.08 (0-0.5) K/uL Baso # (Auto) 0.05 (0-0.2) K/uL PT 10.3 (9.0-12.0) Seconds INR 1.0 (0.9-1.1) APTT 27.5 (21.0-31.0) Seconds PTT Ratio 1.1 Sodium 139 (136-145) mmol/L Potassium 3.5 (3.5-5.1) mmol/L Chloride 104 (98-107) mmol/L Carbon Dioxide 28 (21-32) mmol/L Anion Gap 6.0 (3-11) BUN 11 (7-18) mg/dl Creatinine 1.02 (0.6-1.2) mg/dl Est Cr Clr Drug Dosing 58.5 ml/min Est GFR ( Amer) 74.8 Est GFR (Non-Af Amer) 64.5 BUN/Creatinine Ratio 10.9 (10-20) Glucose 112 H (70-99) mg/dl Calcium 8.6 (8.5-10.1) mg/dl Total Bilirubin 0.5 (0.2-1) mg/dl AST 86 H (15-37) U/L ALT 114 H (12-78) U/L Alkaline Phosphatase 101 (45-117) U/L Troponin I < 0.015 (0-0.045) ng/ml Total Protein 7.7 (6.4-8.2) gm/dl Albumin 3.7 (3.4-5.0) gm/dl Globulin 4.0 (2.5-4.0) gm/dl Albumin/Globulin Ratio 0.9 (0.9-2) Urine Color Urine Appearance (Clear) Urine pH (4.5-7.5) Ur Specific [place] (1.000-1.060) Urine Protein (Negative) Urine Glucose (UA) (Negative) Urine Ketones (Negative) Urine Blood (Negative) Urine Nitrite (Negative) Urine Bilirubin (Negative) Urine Urobilinogen (Negative) Ur Leukocyte Esterase (Negative) Urine RBC (0-4) /hpf Urine WBC (0-5) /hpf Ur Epithelial Cells (0-5) /lpf Urine Bacteria (Negative) 08/31/18 08/31/18 Range/Units 14:28 18:09 WBC (4.8-10.8) K/uL RBC (4.2-5.4) M/uL Hgb (12.0-16.0) g/dL Hct (37-47) % MCV (80-100) fL MCH (25-34) pg MCHC (32-36) g/dL RDW Std Deviation (36.4-46.3) fL RDW Coeff of Kayla (11.5-14.5) % Plt Count (130-400) K/uL MPV (7.4-10.4) fL Immature Gran % (Auto) % Neut % (Auto) % Lymph % (Auto) % Griggs % (Auto) % Eos % (Auto) % Baso % (Auto) % Immature Gran # (Auto) (0.00-0.02) K/uL Neut # (Auto) (1.4-6.5) K/uL Lymph # (Auto) (1.2-3.4) K/uL Griggs # (Auto) (0.11-0.59) K/uL Eos # (Auto) (0-0.5) K/uL Baso # (Auto) (0-0.2) K/uL PT (9.0-12.0) Seconds INR (0.9-1.1) APTT (21.0-31.0) Seconds PTT Ratio Sodium (136-145) mmol/L Potassium (3.5-5.1) mmol/L Chloride (98-107) mmol/L Carbon Dioxide (21-32) mmol/L Anion Gap (3-11) BUN (7-18) mg/dl Creatinine (0.6-1.2) mg/dl Est Cr Clr Drug Dosing ml/min Est GFR ( Amer) Est GFR (Non-Af Amer) BUN/Creatinine Ratio (10-20) Glucose (70-99) mg/dl Calcium (8.5-10.1) mg/dl Total Bilirubin (0.2-1) mg/dl AST (15-37) U/L ALT (12-78) U/L Alkaline Phosphatase (45-117) U/L Troponin I < 0.015 (0-0.045) ng/ml Total Protein (6.4-8.2) gm/dl Albumin (3.4-5.0) gm/dl Globulin (2.5-4.0) gm/dl Albumin/Globulin Ratio (0.9-2) Urine Color Cata[place] Urine Appearance Cloudy H (Clear) Urine pH (4.5-7.5) Ur Specific [place] 1.021 (1.000-1.060) Urine Protein (Negative) Urine Glucose (UA) (Negative) Urine Ketones (Negative) Urine Blood (Negative) Urine Nitrite (Negative) Urine Bilirubin (Negative) Urine Urobilinogen (Negative) Ur Leukocyte Esterase (Negative) Urine RBC >30 H (0-4) /hpf Urine WBC >30 H (0-5) /hpf Ur Epithelial Cells >30 H (0-5) /lpf Urine Bacteria 4+ H (Negative) Imaging Data Radiologist's Impression: US renal/blad retro comp CLINICAL HISTORY: 47 years-old Female presenting with left stent, possible hydro. TECHNIQUE: Real-time grayscale and limited color Doppler ultrasound imaging of the kidneys and bladder was performed. COMPARISON: Plain radiograph from earlier today, CT from 08/16/2018 and ultrasound from 05/12/2018. FINDINGS: Right kidney: Cortical thinning may be present. Right kidney measures 10.6 cm. No hydronephrosis. No sonographic evidence of calculus or mass. Left kidney: Normal echogenicity of renal parenchyma. Left kidney measures 11.1 cm. Mild pelvocaliectasis new from prior CT. No sonographic evidence of calculus or mass though calculi are present as demonstrated on recent CT. Bladder: Incompletely distended resulting in apparent circumferential wall thickening. The left ureteral stent may be present in the urinary bladder though this is not well depicted. Bilateral ureteral jets not visualized. Other: None. IMPRESSION: 1. Mild left hydronephrosis. Poor visualization of the left ureteral stent. Electronically signed by: Skyler Alvarado M.D. 08/31/2018 3:35 PM KUB CLINICAL HISTORY: left stent COMPARISON STUDY: CT of the abdomen and pelvis September 16, 2018. FINDINGS: A left ureteral stent is in place. Pelvic calcifications are unchanged and favor phleboliths. Left renal calculi shown on CT of August 16, 2018 are not visualized on this exam, possibly due to technique. Bowel gas pattern is normal. Intrauterine device is incidentally noted. IMPRESSION: 1. Left ureteral stent in place. No ureteral calculi identified. 2. Left renal calculi on CT of August 16, 2018 not visualized on this exam, possibly due to technique. Electronically signed by: Harvey Landa M.D. 08/31/2018 2:32 PM XR chest 1V portable HISTORY: 47 years-old Female CP acute atypical chest pain COMPARISON: KUB of same day, chest radiograph 08/21/2018 TECHNIQUE: Portable AP view of the chest FINDINGS: Cardiomediastinal and hilar silhouettes are within normal limits. Minimal linear subsegmental left basilar atelectasis. No pneumothorax, pleural effusion , focal airspace consolidation or overt pulmonary edema. Bones of the chest appear grossly intact. IMPRESSION: No acute process. The above report was generated using voice recognition software. It may contain grammatical, syntax or spelling errors. Electronically signed by: Hema Caceres M.D. 08/31/2018 2:30 PM ECG Data Attestation: I personally reviewed and interpreted this ECG as follows: Indication: chest pain and nausea Rate (beats per minute): 83 Rhythm: normal sinus Findings: no PVC and no ST elevation Blood Pressure Blood Pressure Findings: Normal blood pressure MDM Narrative There is no leukocytosis or concerning anemia. No significant electrolyte abnormality or kidney failure. There was some subtle liver enzyme elevation. Urinalysis does suggest infection, urine culture is pending. EKG shows a normal sinus rhythm, no acute ischemia. Cardiac enzyme testing x1 is not consistent with acute cardiac injury. KUB shows the left ureteral stent to be in proper position. Renal ultrasound shows some very mild hydronephrosis on the left-no concerning obstruction. Chest film does not show free air, pneumonia or pneumothorax. The patient received IV Tylenol and IV Toradol. She was given IV saline. She received IV Zofran and IV ceftriaxone. The patient presents with a fever and vomiting despite oral Cipro. She does have a left ureteral stent and is being treated for a pyelonephritis. She appears to be failing outpatient treatment. I did speak to urology, they recommended a hospital stay and IV antibiotics. I talked to the patient and case loader operator. The on-call hospitalist was consulted. A hospital stay is warranted. Impression & Plan Pyelonephritis, Failure of outpatient treatment, Vomiting, S/P cystoscopy, Left sided chest pain Discharge Plan Visit Data *Final* Discharge Date/Time: 08/31/18 17:44 Chief Complaint: Fever Stated Complaint: VOMITING,FEVER, HAD KIDNEY STONES REMOVED ED Provider: Fidencio Sharma Discharge Problem: Pyelonephritis, Failure of outpatient treatment, Vomiting, S/P cystoscopy, Left sided chest pain Patient Disposition: Admitted As Inpatient Discharge Instructions Interventions: ED Discharge Assessment Last Done: 08/31/18 17:44 The khadijah's documentation has been prepared under my direction and personally reviewed by me in its entirety. I confirm that the note above accurately reflects all work, treatment, procedures, and medical decision making performed by me.
--- NOTE | 2018-08-31 17:27 | History & Physical Report ---
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 Pt had a L sided ureteral stent placed on 08/[address] Mckinney for possibly infected stone. Pt had no pain related to the stone, however post-stent she did note L sided flank soreness. This has not changed. She was doing fine until today when she noted fever, n/v. She has not had any emesis since coming to the ED, but has ongoing nausea. She states she is hungry and would like to eat now however. She did have an episode of chest pain last night that was L lateral. Pt denies fever, SOB, abd pain, c/d, LE pain or swelling. Denies painful urination. Urine is orange on pyrimidine. No romeo blood noted. Allergies Allergy/AdvReac Type Severity Reaction Status Date / Time hydromorphone Allergy Mild "FELT LIKE Verified 08/31/18 14:02 SKIN WAS CRAWLING" Home Medications Home Medications Medication Instructions Recorded Confirmed Type eletriptan 40 mg tablet 40 mg PO UD PRN 06/12/18 08/31/18 History hydrocodone 10 mg-acetaminophen 1 tab PO UD PRN 06/12/18 08/31/18 History 325 mg tablet ketorolac 10 mg tablet 10 mg PO Q6H PRN 06/12/18 08/31/18 History escitalopram 10 mg tablet 20 mg PO HS tab 07/26/18 08/31/18 History Botox Injection 1 dose UD PRN 08/18/18 08/31/18 History diazepam 5 mg PO UD PRN 08/18/18 08/31/18 History erenumab-aooe 1 dose SUBCUT UD PRN 08/18/18 08/31/18 History mirabegron [Myrbetriq] 50 mg PO HS 08/18/18 08/31/18 History prednisone 20 mg PO UD PRN 08/18/18 08/31/18 History sumatriptan succinate [Imitrex] 1 dose UD PRN 08/18/18 08/31/18 History ciprofloxacin HCl [Cipro] 500 mg PO BID #10 tab 08/28/18 08/31/18 Rx oxycodone-acetaminophen [Percocet] 1 tab PO Q8H PRN #20 tab 08/28/18 08/31/18 Rx phenazopyridine [Pyridium] 200 mg PO TID PRN #20 tab 08/28/18 08/31/18 Rx Past Med/Surg History Medical History Anxiety disorder (Chronic) Depressive disorder (Chronic) Frequent UTI (Chronic) PT THINKS CURRENTLY HAS ONE, PT THINKS REASON FOR UPCOMING SURGERY Headache (Chronic) MIGRAINES History of nephrolithotomy with removal of calculi (Chronic) Hypothyroidism (Chronic) NO MEDS FOR Kidney stones (Chronic) Migraine (Chronic) Neck pain (Chronic) Nephrolithiasis (Chronic) Occipital neuralgia (Chronic) TMJ (temporomandibular joint syndrome) (Chronic) NEVER LOCKS Von Willebrand's disease (Chronic) Pt reports she had bruising and blood in her eye 20+ years ago, prompting testing. Has had DDAVP with previous surgeries and childbirth. Was told it is ' mild.' Had [place] [facility] [place] and was given DDAVP pre-op. Surgeon aware and to coordinate care. 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 Safe at Home: Yes Smoking Status: Never smoker Hx Alcohol Use: Yes Alcohol type: wine Alcohol Intake Frequency: holidays/ special occasions only Hx Substance Use: No Visual Impairment: No Limitations Hearing Ability: Normal Review of Systems Pertinent positives and negatives reviewed in HPI--all others negative Physical Exam 2 Vital Signs (Past 24 Hours): Last Vital Signs Temp 36.9 C 08/31/18 13:01 Pulse 70 08/31/18 17:21 Resp 20 08/31/18 17:21 BP 114/70 08/31/18 17:21 Pulse Ox 94 08/31/18 17:21 Constitutional: WD/WN, vitals as above Eyes: normal visual moran by confrontation and + anicteric sclerae Neck: normal visual inspection and trachea midline Respiratory: normal respiratory effort, lungs clear to auscultation Cardiovascular: Rate/Rhythm: regular rate and regular rhythm Gastrointestinal (Abdomen): Inspection/Auscultation: abdomen not distended Percussion/Palpation: abdomen soft; abdomen nontender Musculoskeletal: Head/Neck/Chest: normocephalic and head atraumatic negative for edema, peripheral pulses intact Skin: no rashes, warm and dry Neurologic: awake; not confused Speech / Cognition: normal speech Psychiatric: A+Ox3, euthymic affect Results & Data Diagnostic Findings CXR: neg for acute KUB: L stent in place, no stone visualized Renal US: mild hydro, L stent ECG Rhythm: normal sinus Code Status & VTE Plan Code Status Full code VTE Prophylaxis Plan VTE Prophylaxis will be ordered: Yes
[2018-08-31] MEDS ORDERED: ONDANSETRON INJ 2 MG/ML 2 ML VIAL IV PRN (17:59)
[2018-08-31] MEDS ORDERED: KETOROLAC TROMETHAMINE 10 MG TABLET PO PRN (17:59)
[2018-08-31] MEDS ORDERED: PHENAZOPYRIDINE HCL 200 MG TAB PO PRN (17:59)
[2018-08-31] MEDS ORDERED: MAGNESIUM HYDROXIDE SUSP 30 ML UDC PO PRN (17:59)
[2018-08-31] MEDS: NSS + 20MEQ KCL 20 MEQ/1,000 ML BAG IV SCH (20:41)
[2018-08-31] MEDS: MIRABEGRON ER 25 MG TAB PO SCH (21:21)
[2018-08-31] MEDS: ESCITALOPRAM OXALATE 20 MG TAB PO SCH (21:21)
[2018-08-31] MEDS: ACETAMINOPHEN 325 MG TAB PO PRN (22:31)
[2018-09-01 05:49] LABS: Basophils # (auto) 0.03 K/uL (0-0.2); Basophils % (auto) 0.4 %; Eosinophils # (auto) 0.12 K/uL (0-0.5); Eosinophils % (auto) 1.7 %; Hematocrit (blood only) 36.8 % (37-47); Immature Granulocytes # (auto) 0.01 K/uL (0.00-0.02); Immature Granulocytes % (auto) 0.1 %; Lymphocytes % (auto) 27.9 %; Mean Corpuscular Hgb Conc 32.6 g/dL (32-36); Mean Corpuscular Volume 90.2 fL (80-100); Mean Platelet Volume 10.4 fL (7.4-10.4); Monocytes # (auto) 0.72 K/uL (0.11-0.59); Neutrophils # (auto) 4.29 K/uL (1.4-6.5); Neutrophils % (auto) 59.9 %; Platelet Count 260 K/uL (130-400); RDW Coefficient of Variation 14.8 % (11.5-14.5); RDW Standard Deviation 48.5 fL (36.4-46.3); Red Blood Count 4.08 M/uL (4.2-5.4); White Blood Count 7.17 K/uL (4.8-10.8)
[2018-09-01 06:17] LABS: BUN Creatinine Ratio 12.2 (10-20); Creatinine Clr Calc Pharmacy 62.7 ml/min; Est GFR (African American) 81.5; Est GFR (Non-African American) 70.3; Potassium 3.8 mmol/L (3.5-5.1)
[2018-09-01] MEDS ORDERED: cefTRIAXone SODIUM 2,000 MG in DEXTROSE 5% 50 ML IV SCH (08:00)
[2018-09-01] MEDS: NSS + 20MEQ KCL 20 MEQ/1,000 ML BAG IV SCH ×2 (08:04→22:37)
[2018-09-01] MEDS: LACTOBACILLUS ACIDOPHILUS (FLORANEX) TAB PO SCH ×2 (11:51→17:55)
[2018-09-01] MEDS: ACETAMINOPHEN 325 MG TAB PO PRN (11:55)
[2018-09-01] MEDS: SENNA 8.6 MG TAB PO SCH (12:51)
[2018-09-01] MEDS: OXYCODONE/ACETAMINOPHEN 5mg/325mg TAB PO PRN ×2 (12:54→21:02)
[2018-09-01] MEDS: POLYETHYLENE (MIRALAX) 17 GM PACK PO SCH ×2 (13:40→15:50)
[2018-09-01] MEDS: AMPICILLIN/SULBACTAM SOD 3,000 MG in 0.9 % SODIUM CHLORIDE 100 ML IV SCH ×3 (13:42→23:37)
--- NOTE | 2018-09-01 15:39 | Urology Consultation ---
Date of Consultation September 01, 2018 Assessment & Plan (1) Pyelonephritis: Enterococcus on stone culture - was previously on cipro empirically, now appropriately adjusted based on cultures - likely transition tomorrow to oral ampicillin for 10 day course - stent should remain in place now History of Present Illness Attending Physician: Jimy Mendoza History of Present Illness Patient well-known to our service with recurrent urinary tract infections and kidney stones Recently underwent kidney stone surgery with extraction of the specimen and culture of the stone Culture revealed enterococcus She was on ciprofloxacin empirically prior to this culture, unfortunately she also developed fevers and return to the emergency room overnight Subjectively feeling very well right now Afebrile since arrival None toxic appearing Minor stent related discomfort, minor nausea Allergies Allergy/AdvReac Type Severity Reaction Status Date / Time hydromorphone Allergy Mild "FELT LIKE Verified 08/31/18 14:02 SKIN WAS CRAWLING" Home Medications Home Medications Medication Instructions Recorded Confirmed Type eletriptan 40 mg tablet 40 mg PO UD PRN 06/12/18 08/31/18 History hydrocodone 10 mg-acetaminophen 1 tab PO UD PRN 06/12/18 08/31/18 History 325 mg tablet ketorolac 10 mg tablet 10 mg PO Q6H PRN 06/12/18 08/31/18 History escitalopram 10 mg tablet 20 mg PO HS tab 07/26/18 08/31/18 History Botox Injection 1 dose UD PRN 08/18/18 08/31/18 History diazepam 5 mg PO UD PRN 08/18/18 08/31/18 History erenumab-aooe 1 dose SUBCUT UD PRN 08/18/18 08/31/18 History mirabegron [Myrbetriq] 50 mg PO HS 08/18/18 08/31/18 History prednisone 20 mg PO UD PRN 08/18/18 08/31/18 History sumatriptan succinate [Imitrex] 1 dose UD PRN 08/18/18 08/31/18 History ciprofloxacin HCl [Cipro] 500 mg PO BID #10 tab 08/28/18 08/31/18 Rx oxycodone-acetaminophen [Percocet] 1 tab PO Q8H PRN #20 tab 08/28/18 08/31/18 Rx phenazopyridine [Pyridium] 200 mg PO TID PRN #20 tab 08/28/18 08/31/18 Rx Patient History Medical History Anxiety disorder (Chronic) Depressive disorder (Chronic) Frequent UTI (Chronic) PT THINKS CURRENTLY HAS ONE, PT THINKS REASON FOR UPCOMING SURGERY Headache (Chronic) MIGRAINES History of nephrolithotomy with removal of calculi (Chronic) Hypothyroidism (Chronic) NO MEDS FOR Kidney stones (Chronic) Migraine (Chronic) Neck pain (Chronic) Nephrolithiasis (Chronic) Occipital neuralgia (Chronic) TMJ (temporomandibular joint syndrome) (Chronic) NEVER LOCKS Von Willebrand's disease (Chronic) Pt reports she had bruising and blood in her eye 20+ years ago, prompting testing. Has had DDAVP with previous surgeries and childbirth. Was told it is ' mild.' Had [place] [facility] [place] and was given DDAVP pre-op. Surgeon aware and to coordinate care. 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 Other Information That Helps Us Care for You: No Feels Safe at Home: Yes Safety Concerns: Feels Safe At This Time Smoking Status: Never smoker Hx Alcohol Use: No Hx Substance Use: No Beliefs That Will Affect Care: None Preferred Language: Occitan Communication Ability: Effective 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: No Review of Systems Constitutional: as per Subjective / HPI, + fever and + chills Respiratory: no cough and no dyspnea Cardiovascular: no chest pain and no dyspnea Gastrointestinal: + abdominal pain and + nausea Genitourinary (Female): as per Subjective / HPI Musculoskeletal: no back pain and no neck pain Integumentary: no rash Endocrine: no fatigue Physical Exam 2 Vital Signs (Past 24 Hours): Last Vital Signs Temp 36.7 C 09/01/18 14:41 Pulse 83 09/01/18 14:41 Resp 20 09/01/18 14:41 BP 123/82 09/01/18 14:41 Pulse Ox 94 09/01/18 14:41 Physical Exam: NAD AAOx3 no resp distress RRR abd soft - minor tenderness on the left flank no rashes no adenopathy no edema
[2018-09-01] MEDS: MIRABEGRON ER 25 MG TAB PO SCH (21:01)
[2018-09-01] MEDS: ESCITALOPRAM OXALATE 20 MG TAB PO SCH (21:01)
--- NOTE | 2018-09-01 21:22 | Hospitalist Progress Note ---
Date of Service September 01, 2018 Assessment & Plan (1) Pyelonephritis: left-sided. during the patient's recent left-sided ureteral stent placement with stone extraction on 08/28 a culture was sent of the stone that was extracted. she was sent home on cipro from the hospital following that procedure. the stone culture grew enterococcus. unfortunately the cipro would not have covered this pathogen. thus, the UTI/pyelonephritis is not a complication of her procedure but simply due to lack of efficacy of the antibiotic she had been taking. will change rocephin to unasyn. continue this for at least 24 hours if not longer. follow the repeat urine cx sent yesterday to see if any new pathogens are present. continue IV fluids and pain control. appreciate urology consultation. plan is still for stent retrieval as an outpatient later this month. Present on Admission?: Yes (2) Chest pain: troponins negative. EKG w/o ischemic changes. pain was transient and has not recurred. unlikely cardiac in nature. would recommend outpatient stress test to be complete. (3) Von Willebrand disease: noted no issues at this time (4) Anxiety: continue outpatient meds (5) Depression: continue outpatient meds (6) Hypothyroid: cannot find TSH in the EMR in the last year will check TSH in am for stability doesn't appear to take meds on regular basis (7) Migraine: chronic, intermittent issue no headache at this time (8) Abnormal transaminases: etiology? start with simply repeating the AST and ALT in am (9) Constipation: add senna and miralax today this is opiate-induced constipation likely contributing to abdominal bloating (10) DVT prophylaxis: if patient stays beyond tomorrow would add lovenox daily ambulation in meantime Subjective patient continues with mild left sided flank pain and mild left-sided abdominal discomfort. feels bloated. no dysuria. no bowel movement in 4+ days. no fevers or chills. appetite fair at best. Constitutional: + anorexia; no fever, no chills and no weakness Respiratory: no cough and no dyspnea Cardiovascular: no chest pain Gastrointestinal: + abdominal pain and + constipation; no nausea, no vomiting and no diarrhea/loose stools Genitourinary (Female): no dysuria Physical Exam 2 Vital Signs (Past 24 Hours): Last Vital Signs Temp 36.7 C 09/01/18 14:41 Pulse 83 09/01/18 14:41 Resp 20 09/01/18 14:41 BP 123/82 09/01/18 14:41 Pulse Ox 94 09/01/18 14:41 Constitutional: well developed and well nourished; no acute distress and not ill appearing ENMT: external ear and nose normal, oropharynx normal Respiratory: normal respiratory effort, lungs clear to auscultation Cardiovascular: RRR, no murmur, no edema Heart Sounds: normal S1 and normal S2 Vessels: posterior tibial pulses present and dorsalis pedis pulses present; no JVD Gastrointestinal (Abdomen): mild left flank pain to palpation; mild left- sided abdominal discomfort to palpation; mild distension as well. Psychiatric: A+Ox3, euthymic affect Results & Data Laboratory Results Laboratory Results - last 24 hr 09/01/18 09/01/18 05:22 05:22 WBC 7.17 RBC 4.08 L Hgb 12.0 Hct 36.8 L MCV 90.2 MCH 29.4 MCHC 32.6 RDW Std Deviation 48.5 H RDW Coeff of Kayla 14.8 H Plt Count 260 MPV 10.4 Immature Gran % (Auto) 0.1 Neut % (Auto) 59.9 Lymph % (Auto) 27.9 [place]y % (Auto) 10.0 Eos % (Auto) 1.7 Baso % (Auto) 0.4 Immature Gran # (Auto) 0.01 Neut # (Auto) 4.29 Lymph # (Auto) 2.00 [place] # (Auto) 0.72 H Eos # (Auto) 0.12 Baso # (Auto) 0.03 Sodium 142 Potassium 3.8 Chloride 110 H Carbon Dioxide 28 Anion Gap 5.0 BUN 12 Creatinine 0.95 Est Cr Clr Drug Dosing 62.7 Est GFR ( Amer) 81.5 Est GFR (Non-Af Amer) 70.3 BUN/Creatinine Ratio 12.2 Glucose 100 H Calcium 8.0 L Diagnostic Findings urine culture pending recent stone culture with enterococcus _ (1) Chest pain Chest pain type: unspecified Qualified Code(s): R07.9 - Chest pain, unspecified (2) Depression Depression Type: other depression Qualified Code(s): F32.89 - Other specified depressive episodes (3) Hypothyroid Hypothyroidism type: acquired Qualified Code(s): E03.9 - Hypothyroidism, unspecified (4) Migraine Migraine type: other Status migrainosus presence: without status migrainosus Intractability: not intractable Qualified Code(s): G43.809 - Other migraine, not intractable, without status migrainosus (5) Constipation Constipation type: other constipation type Qualified Code(s): K59.09 - Other constipation
[2018-09-01] MEDS: SUMAtriptan succinate 6 MG/0.5 ML VIAL SQ PRN (22:51)
[2018-09-02] MEDS: AMPICILLIN/SULBACTAM SOD 3,000 MG in 0.9 % SODIUM CHLORIDE 100 ML IV SCH ×2 (05:57→11:01)
[2018-09-02 06:40] LABS: BUN Creatinine Ratio 8.8 (10-20); Calcium 8.4 mg/dl (8.5-10.1); Creatinine Clr Calc Pharmacy 76.4 ml/min; Est GFR (African American) 103.5; Est GFR (Non-African American) 89.3
[2018-09-02] MEDS: LACTOBACILLUS ACIDOPHILUS (FLORANEX) TAB PO SCH ×2 (09:08→12:24)
[2018-09-02] MEDS: SENNA 8.6 MG TAB PO SCH (09:09)
[2018-09-02] MEDS: POLYETHYLENE (MIRALAX) 17 GM PACK PO SCH (09:09)
[2018-09-02] MEDS: OXYCODONE/ACETAMINOPHEN 5mg/325mg TAB PO PRN (09:11)
--- NOTE | 2018-09-02 10:15 | Urology Progress Note ---
Date of Service September 02, 2018 Assessment & Plan (1) Pyelonephritis: taper abx (ampicillin?) - d/c home today - will arrange for outpt f/u for stent removal Subjective subjectively feeling very well no issues overnight anxious to go home Physical Exam 2 Vital Signs (Past 24 Hours): Last Vital Signs Temp 36.7 C 09/02/18 07:56 Pulse 84 09/02/18 07:56 Resp 15 09/02/18 07:56 BP 142/86 H 09/02/18 07:56 Pulse Ox 98 09/02/18 07:56 Physical Exam: NAD AAox3 no resp distress RRR abd soft, no CVA tenderness no edema
[2018-09-02] MEDS: SUMAtriptan succinate 6 MG/0.5 ML VIAL SQ PRN (11:42)
[2018-09-02] MEDS: NSS + 20MEQ KCL 20 MEQ/1,000 ML BAG IV SCH (12:23)
--- NOTE | 2018-09-02 12:34 | Discharge Summary ---
Date of Service September 02, 2018 Admission HPI Per Admitting Provider 47 y/o F c/o fever, n/v. Pt had a L sided ureteral stent placed on 08/[address] Mckinney for possibly infected stone. Pt had no pain related to the stone, however post-stent she did note L sided flank soreness. This has not changed. She was doing fine until today when she noted fever, n/v. She has not had any emesis since coming to the ED, but has ongoing nausea. She states she is hungry and would like to eat now however. She did have an episode of chest pain last night that was L lateral. Pt denies fever, SOB, abd pain, c/d, LE pain or swelling. Denies painful urination. Urine is orange on pyrimidine. No romeo blood noted. Principal Diagnosis Acute pyelonephritis Discharge Exam Constitutional WD/WN, vitals as above Eyes PERRL, conjunctivae normal, anicteric sclerae ENMT external ear and nose normal, oropharynx normal Neck trachea midline, no thyromegaly Respiratory normal respiratory effort, lungs clear to auscultation Cardiovascular RRR, no murmur, no edema Gastrointestinal (Abdomen) normal bowel sounds, soft, nontender, no hepatosplenomegaly Musculoskeletal Extremities: extremities normal to inspection; no cyanosis and no clubbing Skin no rashes, warm and dry Neurologic moves all extremities and awake; no focal motor deficits Psychiatric A+Ox3, euthymic affect Discharge Data Allergies Allergy/AdvReac Type Severity Reaction Status Date / Time hydromorphone Allergy Mild "FELT LIKE Verified 08/31/18 14:02 SKIN WAS CRAWLING" Consultations 08/31/18 16:30 ED Decision to Admit Stat 08/31/18 17:59 Consult Urology Routine Ordered Studies 08/31/18 14:05 US renal/blad retro comp Stat KUB x-ray Chest x-ray Hospital Course (1) Pyelonephritis: left-sided. during the patient's recent left-sided ureteral stent placement with stone extraction on 08/28 a culture was sent of the stone that was extracted. she was sent home on cipro from the hospital following that procedure. the stone culture grew enterococcus. unfortunately the cipro would not have covered this pathogen. thus, the UTI/pyelonephritis is not a complication of her procedure but simply due to lack of efficacy of the antibiotic she had been taking. She received IV Unasyn during her stay. Urine culture grew out Gardnerella- like bacteria. She received IV fluids and pain control She was doing very well on the day of discharge and had no pain at all except for some mild pain in left lower quadrant from her ureteral stent She will continue on a course of Augmentin 875 mill grams p.o. twice daily x13 more days to continue past the time when she has her stent removed on 09/11/18 appreciate urology consultation. (2) Chest pain: troponins negative. EKG w/o ischemic changes. pain was transient and has not recurred. unlikely cardiac in nature. Would recommend outpatient stress test to be complete. Her primary care provider can arrange this (3) Von Willebrand disease: noted no issues at this time (4) Anxiety: continue outpatient meds (5) Depression: continue outpatient meds (6) Hypothyroid: TSH here is mildly elevated at 4.95 Continue follow-up with primary care provider doesn't appear to take meds on regular basis (7) Migraine: chronic, intermittent issue no headache at this time -Continue on all home meds (8) Abnormal transaminases: etiology unknown Was present on admission, mild in nature, AST and ALT slightly increased on the day of discharge to AST 104 and ALT 144, total bilirubin is normal. Patient has no abdominal pain. Recent CT the abdomen pelvis showed a normal-appearing liver and gallbladder. Suspect this is secondary to side effect of 1 of her medications. Could be from having the pyelonephritis itself -Recommend follow-up LFT panel to be ordered by primary care provider in about 1 week-discussed this condition with the patient and she is aware to ask for repeat blood work from her primary care provider at her hospital follow-up appointment -If LFTs remain abnormal, consider 1 of her migraine medications perhaps versus the antibiotics as the cause of her transaminitis (9) Constipation: this is opiate-induced constipation likely contributing to abdominal bloating KUB without obstruction -Continue MiraLAX daily upon discharge (10) DVT prophylaxis: Ambulation was employed Disposition-stable for discharge to home today Total Time Total Time Spent Total Time Spent (In Minutes): Greater than 30 minutes Total Time Includes: Examination of the Patient, Discharge Planning and Medication Reconciliation Discharge Plan Discharge Items Patient Disposition: Home - Self-Care Reason For Visit: PYELONEPHRITIS Discharge Diagnosis: Acute pyelonephritis Condition: Good Discharge Goals: Decrease discomfort, Diagnostic testing, Improve disease control, Learn about illness and Therapeutic intervention Activity: Resume your previous activity Lifting: Gradually increase as tolerated Bathing: No limitations Exercise/Sports: Gradually increase as tolerated Driving/Machine Use: No limitations Non-emergency contact: Primary Care Provider and Urologist Call non-emergency contact if: you have any medication questions, your symptoms worsen, your pain is not controlled, your pain is worsening, your pain is unusual for you, your pain is concerning for you, you have a fever and your temperature is above 101 Follow-up/Referrals: Clara Holguin CRNP [Primary Care Provider] - (Please call for a hospital follow-up appointment within 1-2 weeks) Jose C Patel MD [Physician] - (Please follow-up as scheduled for stent removal.) Diet: Regular Addtl Provider Instructions: You were admitted with an infection of the kidney and urinary tract. Your antibiotics were changed to Augmentin 875 mg by mouth twice daily. Please continue on this until after your stent is removed. Your liver enzymes were mildly elevated on the blood work you had here. This could be secondary to the infection that you had or else a side effect of the previous antibiotic. It is important that your primary care provider order you repeat blood work to have done in approximately 1 week to make sure this is resolved. Prescriptions: New polyethylene glycol 3350 [Miralax] 17 gram Powder In Packet 17 g PO DAILY Qty: 10 RF: 0 amoxicillin-pot clavulanate [Augmentin] 875-125 mg tablet 1 tab PO BID Qty: 26 RF: 0 Continue escitalopram oxalate [Lexapro] 10 mg tablet 20 mg PO HS RF: 0 eletriptan [Relpax] 40 mg tablet 40 mg PO UD PRN (Reason: MIGRAINES) RF: 0 hydrocodone-acetaminophen 10-325 mg tablet 1 tab PO UD PRN (Reason: SEVERE MIGRAINE) RF: 0 ketorolac 10 mg tablet 10 mg PO Q6H PRN (Reason: MIGRAINES) RF: 0 prednisone 20 mg Tablet 20 mg PO UD PRN (Reason: MIGRAINES) RF: 0 diazepam 5 mg Tablet 5 mg PO UD PRN (Reason: MIGRAINES) RF: 0 mirabegron [Myrbetriq] 50 mg Tablet Extended Release 24 Hr 50 mg PO HS RF: 0 Botox Injection 1 dose UD PRN (Reason: MIGRAINES) RF: 0 erenumab-aooe 70 mg/mL Auto-Injector 1 dose subcut UD PRN (Reason: MIGRAINES) RF: 0 sumatriptan succinate [Imitrex] 6 mg/0.5 mL Solution 1 dose UD PRN (Reason: MIGRAINES) RF: 0 phenazopyridine [Pyridium] 200 mg tablet 200 mg PO TID PRN (Reason: pain) Qty: 20 RF: 0 Discontinued ciprofloxacin HCl [Cipro] 500 mg tablet 500 mg PO BID Qty: 10 RF: 0 oxycodone-acetaminophen [Percocet] 5-325 mg tablet 1 tab PO Q8H PRN (Reason: pain) Qty: 20 RF: 0 Stand-Alone Forms: [facility] Discharge Orders: Discharge Order (Routine); Ordered 09/02/18 Ordered By: Hilda Walsh Admission Data Admit Date/Time: 08/31/18 17:20 Attending Provider: Hilda Walsh Admit Provider: Yvette Friedman Primary Care Provider: Clara Holguin Other Providers: Yvette Friedman ; Jose C Patel Service: Medical Other Pending Studies at Discharge: No
== END 2018-09-02 12:59 | disposition home or self-care (01) | DRG 660 ==
LOC: ED 12:58 → 4E 17:20 → SUATTDRO 17:20 → 4E 17:44

== ENCOUNTER 2021-09-25 18:40 | Observation (INO) ==
[2021-09-25 19:49] LABS: Basophils # (auto) 0.08 K/uL (0-0.2); Basophils % (auto) 0.8 %; Eosinophils # (auto) 0.57 K/uL (0-0.5); Hematocrit (blood only) 39.5 % (37-47); Hemoglobin 13.4 g/dL (12.0-16.0); Immature Granulocytes # (auto) 0.01 K/uL (0.00-0.02); Immature Granulocytes % (auto) 0.1 %; Lymphocytes # (auto) 2.71 K/uL (1.2-3.4); Lymphocytes % (auto) 28.4 %; Mean Corpuscular Hgb Conc 33.9 g/dL (32-36); Mean Corpuscular Volume 88.6 fL (80-100); Mean Platelet Volume 10.4 fL (7.4-10.4); Monocytes # (auto) 0.62 K/uL (0.11-0.59); Monocytes % (auto) 6.5 %; Neutrophils # (auto) 5.55 K/uL (1.4-6.5); Neutrophils % (auto) 58.2 %; Platelet Count 329 K/uL (130-400); RDW Coefficient of Variation 14.4 % (11.5-14.5); RDW Standard Deviation 46.9 fL (36.4-46.3); Red Blood Count 4.46 M/uL (4.2-5.4); White Blood Count 9.54 K/uL (4.8-10.8)
[2021-09-25 19:54] LABS: Appearance Urine Clear (Clear); Bacteria Urine Automated 1+ (Negative); Bilirubin Urine Negative (Negative); Blood Urine Trace (Negative); Color Urine Yellow; Epithelial Cell Urine Auto >30 /lpf (0-5); Glucose Urine UA Negative (Negative); Ketones Urine Negative (Negative); Leukocyte Esterase Urine 2+ (Negative); Nitrite Urine Negative (Negative); Protein Urine Negative (Negative); RBC Urine Automated 0-4 /hpf (0-4); Specific Gravity Urine 1.019 (1.000-1.030); Urobilinogen Urine Negative (Negative); WBC Urine Automated >30 /hpf (0-5)
[2021-09-25 20:12] LABS: Albumin Globulin Ratio 1.9 (0.9-2); Albumin Level 4.8 gm/dl (3.4-5.0); BUN Creatinine Ratio 16.9 (10-20); Bilirubin,Total 0.3 mg/dl (0.2-1.0); Calcium 9.8 mg/dl (8.5-10.1); Creatinine Clr Calc Pharmacy 72.8 ml/min; Est GFR (Non-African American) 81.1 ml/min; Globulin 2.5 gm/dl (2.5-4.0); Potassium 3.5 mmol/L (3.5-5.1); Total Protein 7.3 gm/dl (6.0-8.3)
[2021-09-25] MEDS ORDERED: SODIUM CHLORIDE 0.9% 1000ML 1,000 ML IV ONE (20:21)
[2021-09-25] MEDS ORDERED: MoRPHine SULFATE 4 MG/ML 1 ML CARP\\VIAL IV STA ×2 (20:21→22:57)
[2021-09-25] MEDS ORDERED: ONDANSETRON INJ 2 MG/ML 2 ML VIAL IV STA (20:21)
--- NOTE | 2021-09-25 20:26 | Emergency Department Note ---
History of Present Illness General Chief complaint: Back Injury/Pain Stated complaint: LOWER/MIDDLE BACK PAIN Time Seen by Provider: 09/25/21 20:11 Source: patient and other (Boyfriend who is at the bedside) Mode of arrival: ambulatory Limitations: no limitations History of Present Illness Maximum Pain Intensity: 8 This patient comes in with nominal pain radiating to her back. She said this is the fourth episode she has had in about a month she has not been checked out for this. She said she thought it was probably just gas. This particular episode started at 4 PM and radiates into her back. Nothing particular makes it worse. It feels better if she lays on her side or certain positions. She did have la sagna earlier today. She felt hot and cold. The patient has been nauseated. No emesis. Normal bowel movement. No blood or melena. She has been menopausal for greater than a year. Denies trauma or injury. She has not had the COVID vaccine but has had no exposure to Covid. No chest pain or shortness of breath. No dysuria hematuria she has a history of kidney stones and felt like the back may feel slightly like that but not the abdominal abdomen. The pain does move and is in the upper and lower abdomen at times. Home Medications Medication Instructions Recorded Confirmed Type naproxen sodium 550 mg tablet 550 mg PO BID PRN #60 tab 06/16/20 09/25/21 Rx diazepam 5 mg tablet 5 mg PO DAILY PRN #10 tab 12/24/20 09/25/21 Rx sumatriptan succinate 6 mg/0.5 mL 6 mg SUBCUT .COMPLEX 30 Days #1 ml 12/25/20 09/25/21 Rx subcutaneous pen injector escitalopram oxalate 20 mg tablet 40 mg PO HS 30 Days #180 tab 03/02/21 09/25/21 Rx mirabegron 50 mg tablet,extended 50 mg PO HS #90 tab 08/24/21 09/25/21 Rx release 24 hr (Myrbetriq) rimegepant 75 mg disintegrating 75 mg PO DAILY PRN #8 tab 08/25/21 09/25/21 Rx tablet (Nurtec ODT) fremanezumab-vfrm 225 mg/1.5 mL 675 mg SUBCUT Q3MO 90 Days #4.5 ml 09/10/21 09/25/21 Rx subcutaneous syringe (Ajovy Syringe) norethindrone (contraceptive) 0.35 0.35 mg PO HS 09/25/21 09/25/21 History mg tablet omeprazole 20 mg capsule,delayed 20 mg PO HS 09/25/21 09/25/21 History release Allergies Allergy/AdvReac Type Severity Reaction Status Date / Time hydromorphone Allergy Intermediate "FELT LIKE Verified 09/25/21 20:39 SKIN WAS CRAWLING" Past Med/Surg History Medical History (Updated 09/26/21 @ 01:41 by Junaid Johnson MD) Anxiety disorder Depressive disorder Frequent UTI History of nephrolithiasis History of nephrolithotomy with removal of calculi Left History of nipple discharge Right -- breast bx benign Kidney stones Migraine Neck pain Nephrolithiasis Occipital neuralgia TMJ (temporomandibular joint syndrome) NEVER LOCKS Von Willebrand's disease Pt reports she had bruising and blood in her eye 20+ years ago, prompting testing. Has had DDAVP with previous surgeries and childbirth. Was told it is 'mild.' Had ESWL at [facility] [place] 2013 and was given DDAVP pre-op. Surgical History H/O LEEP History of bladder surgery bladder sling History of breast biopsy History of colposcopy History of cystoscopy History of lithotripsy History of tonsillectomy History of tooth extraction Family History Father Family history of prostate cancer Family history of skin cancer Cancer Mother Family history of skin cancer Asthma Diabetes Other Nephrolithiasis Social History Smoking Status: Never smoker Second Hand Exposure: Yes (hx); Hx Alcohol Use: Yes Alcohol type: wine Hx Substance Use: No Preferred Language: Yoruba Communication Ability: Effective Visual Impairment: No Limitations Hearing Ability: Normal Ergonomics Consultant Required: No Beliefs That Will Affect Care: None marital status: Current Living Situation: Spouse 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 occupational status: 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 Other Information That Helps Us Care for You: No Feels Safe at Home: Yes Safety Concerns: Feels Safe At This Time Childhood Exposure to Second-Hand Smoke: No Assistive Devices: None Review of Systems A total of 10 systems reviewed and were otherwise negative Physical Exam Vital Signs Vital Signs - 24 hr 09/25/21 18:42 09/25/21 19:32 09/25/21 21:17 Temperature 36.6 C 36.7 C Temperature Source Temporal Artery Scan Oral Pulse Rate 84 Pulse Rate [Right Finger] 84 88 Pulse Rhythm [Right Finger] Regular Respiratory Rate 84 H 17 16 Respiratory Effort / Characteristics Non-Labored Non-Labored Respiratory Depth Normal Normal Respiratory Pattern Regular Blood Pressure 180/106 H Blood Pressure [Left Arm] 155/103 H 161/102 H Blood Pressure Mean 130 Blood Pressure Mean [Left Arm] 120 121 Blood Pressure Position Sitting Pulse Oximetry 96 97 98 Oxygen Delivery Method Room Air Room Air Room Air Sepsis Recent Fever Within 48 Hours No Sepsis New/Unexplained Change in Mental Status No Sepsis Action Taken by Nursing No Action Required General: Well developed well nourished middle-age female who appears mildly uncomfortable but in no acute distress, breathing comfortably on room air. Normal speech HEENT: Normal cephalic atraumatic. Pupils are equal round and reactive to light. Extraocular movements are intact. Oropharynx is pink with moist mucous membranes. No swelling of the mouth lips or tongue. Neck: Supple with a midline trachea. No meningeal signs or stiffness, no JVD or bruits. No Stridor. Chest: Clear to auscultation bilaterally. No wheezes or rhonchi. No increased work of breathing. Heart: Regular rate and rhythm without murmurs or gallops. Abdomen: Soft, mildly diffusely tender in the abdomen both upper and lower. Nondistended without rebound guarding or rigidity. Extremities: No cyanosis clubbing or edema. No calf tenderness or assymetry Spine/Back. Non tender to palpation. No CVA tenderness Skin: Good turgor without rashes. Neurologic exam: Cranial nerves two through 12 are intact. Motor and sensation are intact and symmetrical throughout. Course Administered Medications Sodium Chloride (Nss 1000ml) 1,000 mls @ 80 mls/hr IV .[id number] MANSI Stop: 10/26/21 00:37 Last Admin: 09/26/21 00:53 Dose: 80 mls/hr Documented by: [id number] Discontinued Medications Sodium Chloride (Nss 1000ml) 1,000 mls @ 999 mls/hr IV .Q1H1M ONE Stop: 09/25/21 21:21 Last Infusion: 09/25/21 21:42 Dose: 0 mls/hr Documented by: [id number] Admin: 09/25/21 20:41 Dose: 999 mls/hr Documented by: [id number] Cefoxitin Sodium (Mefoxin) 2,000 mg in 60 mls @ 100 mls/hr IV NOW STA Stop: 09/25/21 23:40 Last Infusion: 09/26/21 00:00 Dose: 0 mls/hr Documented by: [id number] Admin: 09/25/21 23:24 Dose: 100 mls/hr Documented by: [id number] Sodium Chloride (Nss 1000ml) 1,000 mls @ 125 mls/hr IV .Q8H MANSI Stop: 10/25/21 23:14 Last Infusion: 09/26/21 00:47 Dose: 0 mls/hr Documented by: [id number] Admin: 09/25/21 23:24 Dose: 125 mls/hr Documented by: [id number] Ioversol (Optiray 320 100ml) 95 ml IV ONCE ONE Stop: 09/25/21 20:51 Last Admin: 09/25/21 20:51 Dose: 95 ml Documented by: [id number] Lorazepam (Lorazepam 0.5 Mg Tab) 0.5 mg PO NOW STA Stop: 09/26/21 01:17 Last Admin: 09/26/21 01:33 Dose: Not Given Documented by: [id number] Morphine Sulfate (Morphine Sulfate 4 Mg/Ml 1 Ml Carp\\Vial) 4 mg IV NOW STA Stop: 09/25/21 20:22 Last Admin: 09/25/21 20:40 Dose: 4 mg Documented by: [id number] Morphine Sulfate (Morphine Sulfate 4 Mg/Ml 1 Ml Carp\\Vial) 4 mg IV NOW STA Stop: 09/25/21 22:58 Last Admin: 09/25/21 23:08 Dose: 4 mg Documented by: [id number] Ondansetron HCl (Ondansetron Inj 2 Mg/Ml 2 Ml Vial) 4 mg IV NOW STA Stop: 09/25/21 20:22 Last Admin: 09/25/21 20:40 Dose: 4 mg Documented by: [id number] Medical Decision Making Differential Diagnosis Diverticulitis, appendicitis, colitis, gallbladder disease, pancreatitis, Covid, UTI, kidney stone, electrolyte or metabolic abnormality, infection Medical Records Attestation: I reviewed the patient's medical records. Home Medications Current Medication List: was personally reviewed by me Laboratory Data Attestation: I reviewed the patient's lab results. Result diagrams: 09/25/21 19:35 09/25/21 19:35 Lab Results 09/25/21 09/25/21 09/25/21 Range/Units 19:35 19:35 19:35 WBC 9.54 (4.8-10.8) K/uL RBC 4.46 (4.2-5.4) M/uL Hgb 13.4 (12.0-16.0) g/dL Hct 39.5 (37-47) % MCV 88.6 (80-100) fL MCH 30.0 (25-34) pg MCHC 33.9 (32-36) g/dL RDW Std Deviation 46.9 H (36.4-46.3) fL RDW Coeff of Kayla 14.4 (11.5-14.5) % Plt Count 329 (130-400) K/uL MPV 10.4 (7.4-10.4) fL Immature Gran % (Auto) 0.1 % Neut % (Auto) 58.2 % Lymph % (Auto) 28.4 % Fisher % (Auto) 6.5 % Eos % (Auto) 6.0 % Baso % (Auto) 0.8 % Neut # (Auto) 5.55 (1.4-6.5) K/uL Lymph # (Auto) 2.71 (1.2-3.4) K/uL Fisher # (Auto) 0.62 H (0.11-0.59) K/uL Eos # (Auto) 0.57 H (0-0.5) K/uL Baso # (Auto) 0.08 (0-0.2) K/uL Immature Gran # (Auto) 0.01 (0.00-0.02) K/uL Sodium 139 (136-145) mmol/L Potassium 3.5 (3.5-5.1) mmol/L Chloride 106 (98-107) mmol/L Carbon Dioxide 27 (21-32) mmol/L Anion Gap 6 (3-11) BUN 14 (6-23) mg/dl Creatinine 0.83 (0.6-1.2) mg/dl Est Cr Clr Drug Dosing 72.8 ml/min Est GFR ( Amer) 94.0 ml/min Est GFR (Non-Af Amer) 81.1 ml/min BUN/Creatinine Ratio 16.9 (10-20) Glucose 93 (70-99(Fasting)) mg/dl Calcium 9.8 (8.5-10.1) mg/dl Total Bilirubin 0.3 (0.2-1.0) mg/dl AST 22 (13-39) U/L ALT 34 (7-52) U/L Alkaline Phosphatase 69 (34-104) U/L Total Protein 7.3 (6.0-8.3) gm/dl Albumin 4.8 (3.4-5.0) gm/dl Globulin 2.5 (2.5-4.0) gm/dl Albumin/Globulin Ratio 1.9 (0.9-2) Lipase 30 (11-82) U/L Urine Color Yellow Urine Appearance Clear (Clear) Urine pH 7.0 (4.5-7.5) Ur Specific [place] 1.019 (1.000-1.030) Urine Protein Negative (Negative) Urine Glucose (UA) Negative (Negative) Urine Ketones Negative (Negative) Urine Blood Trace H (Negative) Urine Nitrite Negative (Negative) Urine Bilirubin Negative (Negative) Urine Urobilinogen Negative (Negative) Ur Leukocyte Esterase 2+ H (Negative) Urine WBC (Auto) >30 H (0-5) /hpf Urine RBC (Auto) 0-4 (0-4) /hpf U Hyaline Cast (Auto) 1-5 (0-5) /lpf U Epithel Cells (Auto) >30 H (0-5) /lpf Urine Bacteria (Auto) 1+ H (Negative) Imaging Data Attestation: I personally reviewed and interpreted this imaging study as follows: Radiologist's Impression: Abdomen/Pelvis CT 09/25/21 20:21 CT abd pelvis IV con only CLINICAL HISTORY: abd pain . History of left renal calculus COMPARISON STUDY: 08/16/2018 CT DOSE: 455.63 mGy.cm TECHNIQUE: Standard CT of the Abdomen and Pelvis was performed with IV contrast. A dose lowering technique was utilized adhering to the principles of ALARA. Contrast Volume: Optiray 320, 95 ml. The patient did not receive oral contrast. FINDINGS: Lung base: The lung bases are clear. Abdominal cavity: There is no evidence for abdominal mass, adenopathy or ascit es. Liver: There is homogeneous attenuation of the liver parenchyma. There is no evidence for enhancing mass lesion. Spleen: There is homogeneous attenuation of the splenic parenchyma. There is no enhancing mass lesion. Pancreas: There is homogeneous attenuation of the pancreatic parenchyma. There is no evidence for mass lesion or peripancreatic fluid collection. Gall Bladder: The gallbladder is distended with wall thickening or pericholecystic edema by CT. There is no evidence for cholelithiasis. Gallbladder ultrasound is recommended to evaluate for possible acute cholecystitis. Adrenal glands: The adrenal glands are normal in size and attenuation. There is no evidence for enhancing mass lesion. Kidneys: There is homogeneous attenuation of the renal parenchyma bilaterally. There is no evidence for renal calculus or hydronephrosis. There is no evidence for enhancing mass. Bowel: The bowel loops are normally placed within the abdomen and pelvis without evidence for dilatation or obstruction. There is no evidence for mass lesion. There are no inflammatory changes present. There is no evidence for free air. There is a normal appendix in the right lower quadrant. Bladder: The bladder is within normal limits with no evidence for focal mass, calculus or diverticulum. : There is no evidence for pelvic mass or adenopathy. There is no evidence for pelvic ascites. Vasculature: There is no evidence for aneurysmal dilatation of the abdominal aorta. Osseous structures: There is no acute osseous pathology. IMPRESSION: 1. Distended gallbladder with gallbladder wall thickening or pericholecystic edema. No cholelithiasis. Gallbladder ultrasound is recommended to evaluate for possible acute cholecystitis. 2. No renal calculi or hydronephrosis. 3. Normal appendix. ACT 112: Negative or not required by law. Electronically signed by: Truman Gaitan M.D. 09/25/2021 9:03 PM Gallbladder Ultrasound 09/25/21 21:09 US gallbladder CLINICAL HISTORY: eval for gb disease TECHNIQUE: Multiple real-time sonographic images of the right upper quadrant were obtained. Comparison: None available at the time of this dictation. FINDINGS: The liver is diffusely homogenous with normal contour and echogenicity. No focal mass lesions are seen. No intrahepatic ductal dilatation is seen. A single gallstone is seen. The gallbladder wall is thickened to 0.6 cm with suggestion of surrounding edema. Merrill's sign cannot be assessed as the patient received pain medication. The common duct measures 0.4 cm in diameter at the level of the hepatic artery. The visualized portions of the pancreas appear normal. The right kidney shows normal echogenicity, cortical thickness and renal contour. The right kidney shows no evidence of hydronephrosis or mass. No ascites or free fluid is seen in Lucero's pouch. IMPRESSION: Findings are compatible with acute cholecystitis. ACT 112: Negative or not required by law. Electronically signed by: Jarek Bullock M.D. 09/25/2021 10:32 PM MDM Narrative This patient comes in with abdominal pain rating to her back. She looks well on exam she has had 4 episodes of this. IV access was established and she had blood work obtained. She has no white count or fever to suggest infection. she has no significant anemia. She has normal liver functions and lipase and therefore does not suggest liver, gallbladder, or pancreas disease. Her urinalysis does have greater than 30 white cells but also is greater than 30 epithelial cells and is likely contaminant ,she has no urinary symptoms. IV access was established her boyfriend is at the bedside and driving. She was given a 1 L IV normal saline bolus and was given morphine 4 mg IV and Zofran 4 mg IV. She tells me she had morphine multiple times without any issues. I did order CAT scan to evaluate her for possible intra-abdominal pathologies for her pain. There was concern about her gallbladder on the CAT scan of the recommend an ultrasound. Ultrasound suggested acute cholecystitis. She had been doing better with the pain but it came back so I gave her additional morphine 4 mg IV. I did consult Dr. Murguia who will be admitting the patient with plans for a cholecystectomy. He asked that I start cefuroxime IV as well which I did. The patient was kept n.p.o. and will be admitted for gallbladder surgery. Impression & Plan Acute cholecystitis, Abdominal pain, Lab test negative for COVID-19 virus Discharge Plan Visit Data Chief Complaint: Back Injury/Pain Stated Complaint: LOWER/MIDDLE BACK PAIN ED Provider: Junaid Johnson Discharge Problem: Acute cholecystitis, Abdominal pain, Lab test negative for COVID-19 virus Patient Disposition: Admitted As Inpatient Discharge Instructions Interventions: ED Discharge Assessment Last Done: 09/26/21 00:10 Discharge Problem: Abdominal pain Qualifiers: Abdominal location: epigastric Qualified Code(s): R10.13 - Epigastric pain
[2021-09-25] MEDS ORDERED: OPTIRAY 320 100ml IV ONE (20:50)
--- NOTE | 2021-09-25 21:04 | CT Scan Report ---
CT abd pelvis IV con only CLINICAL HISTORY: abd pain . History of left renal calculus COMPARISON STUDY: 08/16/2018 CT DOSE: 455.63 mGy.cm TECHNIQUE: Standard CT of the Abdomen and Pelvis was performed with IV contrast. A dose lowering karen hnique was utilized adhering to the principles of ALARA. Contrast Volume: Optiray 320, 95 ml. The patient did not receive oral contrast. FINDINGS: Lung base: The lung bases are clear. Abdominal cavity: There is no evidence for abdominal mass, adenopathy or ascites. Liver: There is homogeneous attenuation of the liver parenchyma. There is no evidence for enhancing m ass lesion. Spleen: There is homogeneous attenuation of the splenic parenchyma. There is no enhancing mass lesion . Pancreas: There is homogeneous attenuation of the pancreatic parenchyma. There is no evidence for mas s lesion or peripancreatic fluid collection. Gall Bladder: The gallbladder is distended with wall thickening or pericholecystic edema by CT. There is no evidence for cholelithiasis. Gallbladder ultrasound is recommended to evaluate for possible ac [place] cholecystitis. Adrenal glands: The adrenal glands are normal in size and attenuation. There is no evidence for enhan cing mass lesion. Kidneys: There is homogeneous attenuation of the renal parenchyma bilaterally. There is no evidence f or renal calculus or hydronephrosis. There is no evidence for enhancing mass. Bowel: The bowel loops are normally placed within the abdomen and pelvis without evidence for dilatat ion or obstruction. There is no evidence for mass lesion. There are no inflammatory changes present. There is no evidence for free air. There is a normal appendix in the right lower quadrant. Bladder: The bladder is within normal limits with no evidence for focal mass, calculus or diverticulu m. : There is no evidence for pelvic mass or adenopathy. There is no evidence for pelvic ascites. Vasculature: There is no evidence for aneurysmal dilatation of the abdominal aorta. Osseous structures: There is no acute osseous pathology. IMPRESSION: 1. Distended gallbladder with gallbladder wall thickening or pericholecystic edema. No cholelithiasis . Gallbladder ultrasound is recommended to evaluate for possible acute cholecystitis. 2. No renal calculi or hydronephrosis. 3. Normal appendix. ACT 112: Negative or not required by law. Electronically signed by: Truman Gaitan M.D. 09/25/2021 9:03 PM
--- NOTE | 2021-09-25 22:33 | Ultrasound Report ---
US gallbladder CLINICAL HISTORY: eval for gb disease TECHNIQUE: Multiple real-time sonographic images of the right upper quadrant were obtained. Comparison: None available at the time of this dictation. FINDINGS: The liver is diffusely homogenous with normal contour and echogenicity. No focal mass lesions are se en. No intrahepatic ductal dilatation is seen. A single gallstone is seen. The gallbladder wall i s thickened to 0.6 cm with suggestion of surrounding edema. Merrill's sign cannot be assessed as the p atient received pain medication. The common duct measures 0.4 cm in diameter at the level of the hepa tic artery. The visualized portions of the pancreas appear normal. The right kidney shows normal echogenicity, cortical thickness and renal contour. The right kidney sh ows no evidence of hydronephrosis or mass. No ascites or free fluid is seen in Lucero's pouch. IMPRESSION: Findings are compatible with acute cholecystitis. ACT 112: Negative or not required by law. Electronically signed by: Jarek Bullock M.D. 09/25/2021 10:32 PM
[2021-09-25] MEDS ORDERED: cefOXitin 2,000 MG/60 ML BAG IV STA (23:05)
[2021-09-25] MEDS ORDERED: SODIUM CHLORIDE 0.9% 1000ML 1,000 ML IV SCH (23:15)
--- NOTE | 2021-09-25 23:26 | History & Physical Report ---
Date of Service September 25, 2021 Assessment & Plan (1) Acute cholecystitis: Plan: admit pt with acute cholecystitis npo IV fluids and atbx ask med team to see- htn and other med mgt plan for lap ann in am h/o Von Willebrands dz- DDAVP preop History of Present Illness Primary Care Provider: COMPA Birch 50 yo F to ER with recurrent abd pain, Nausea,no vomiting studies c/w acute cholecystitis- gallstones and thickened gb Allergies Allergy/AdvReac Type Severity Reaction Status Date / Time hydromorphone Allergy Intermediate "FELT LIKE Verified 09/25/21 20:39 SKIN WAS CRAWLING" Home Medications Medication Instructions Recorded Confirmed Type naproxen sodium 550 mg tablet 550 mg PO BID PRN #60 tab 06/16/20 09/25/21 Rx diazepam 5 mg tablet 5 mg PO DAILY PRN #10 tab 12/24/20 09/25/21 Rx sumatriptan succinate 6 mg/0.5 mL 6 mg SUBCUT .COMPLEX 30 Days #1 ml 12/25/20 09/25/21 Rx subcutaneous pen injector escitalopram oxalate 20 mg tablet 40 mg PO HS 30 Days #180 tab 03/02/21 09/25/21 Rx mirabegron 50 mg tablet,extended 50 mg PO HS #90 tab 08/24/21 09/25/21 Rx release 24 hr (Myrbetriq) rimegepant 75 mg disintegrating 75 mg PO DAILY PRN #8 tab 08/25/21 09/25/21 Rx tablet (Nurtec ODT) fremanezumab-vfrm 225 mg/1.5 mL 675 mg SUBCUT Q3MO 90 Days #4.5 ml 09/10/21 09/25/21 Rx subcutaneous syringe (Ajovy Syringe) norethindrone (contraceptive) 0.35 0.35 mg PO HS 09/25/21 09/25/21 History mg tablet omeprazole 20 mg capsule,delayed 20 mg PO HS 09/25/21 09/25/21 History release Past Med/Surg History Medical History (Updated 09/25/21 @ 23:23 by Grover Murguia MD, FACS) Anxiety disorder Depressive disorder Frequent UTI History of nephrolithiasis History of nephrolithotomy with removal of calculi Left History of nipple discharge Right -- breast bx benign Kidney stones Migraine Neck pain Nephrolithiasis Occipital neuralgia TMJ (temporomandibular joint syndrome) NEVER LOCKS Von Willebrand's disease Pt reports she had bruising and blood in her eye 20+ years ago, prompting testing. Has had DDAVP with previous surgeries and childbirth. Was told it is 'mild.' Had ESWL at [facility] [place] 2013 and was given DDAVP pre-op. Surgical History H/O LEEP History of bladder surgery bladder sling History of breast biopsy History of colposcopy History of cystoscopy History of lithotripsy History of tonsillectomy History of tooth extraction Family History Father Family history of prostate cancer Family history of skin cancer Cancer Mother Family history of skin cancer Asthma Diabetes Other Nephrolithiasis Social History Smoking Status: Never smoker Second Hand Exposure: Yes (hx); Hx Alcohol Use: Yes Alcohol type: wine Hx Substance Use: No Preferred Language: Mosotho Communication Ability: Effective Visual Impairment: No Limitations 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 Head Required: No Beliefs That Will Affect Care: None marital status: Current Living Situation: Spouse 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 occupational 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: 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 Safe at Home: Yes Childhood Exposure to Second-Hand Smoke: No Assistive Devices: None Review of Systems Review of Systems: All systems reviewed & are unremarkable except as noted in HPI & below Physical Exam Constitutional: well developed and well nourished; no acute distress Eyes: + anicteric sclerae Respiratory: normal respiratory effort; no respiratory distress Cardiovascular: Rate/Rhythm: regular rate Gastrointestinal (Abdomen): Percussion/Palpation: abdomen soft Abdomen is soft with some right upper quadrant pain Musculoskeletal: Gait: normal gait Skin: no rashes, warm and dry Neurologic: awake Psychiatric: Orientation: alert Results & Data Results & Data ([facility]) Vital Signs (Past 12 Hours) Vital Signs Temp Pulse Pulse Resp BP BP Pulse Ox 09/25/21 21:17 36.7 C 88 16 161/102 H 98 09/25/21 19:32 84 17 155/103 H 97 09/25/21 18:42 36.6 C 84 84 H 180/106 H 96 Laboratory Results reviewed Diagnostic Findings reviewed Code Status & VTE Plan VTE Prophylaxis Plan VTE Prophylaxis will be ordered: Yes PG Care Time/CCT Total # of Minutes Spent Total Time Spent with Patient: Total time spent is greater than 50% in coordination of care (as documented) at patient's floor/unit and/or counseling patient: Coding Level of Care Code 01736 Initial Inpt Care Lvl 3 Diagnoses Acute cholecystitis K81.0
--- NOTE | 2021-09-26 00:13 | Hospitalist Consultation ---
Date of Consultation September 26, 2021 Assessment & Plan (1) Acute cholecystitis: (2) Migraine: (3) Depression: (4) Anxiety: (5) Von Willebrand disease: Niyah Goodson is a 50-year-old female with PMH of von Willebrand's, depression/anxiety, migraines, GERD who comes in due to abdominal pain radiating to her back. Admitted for cholecystectomy due to cholecystitis. Cholecystitis Admit to MedSurg Cefoxitin preop per surgery As needed pain management with morphine As needed nausea control with Zofran To OR tomorrow per general surgery Von Willebrand disease Agree with desmopressin IV prior to surgery Monitor H&H post surgery Migraine Follows with pain management and neurology Continue home mirabegron, can give NSAIDs as needed, consider sumatriptan for abortive treatment if she develops migraine Of note, patient on control despite history of migraines Per patient, has been discussed with food order expediter and she has elected to continue on this treatment knowing the risks and benefits GERD Pantoprazole daily per hospital formulary Depression/anxiety Continue home escitalopram Patient acutely anxious upon admission, given single dose of lorazepam 0.5 p.o. CODE STATUS: Full Diet: N.p.o. Dispo MedSurg, to OR tomorrow DVT prophylaxis: Defer to general surgery Thank you for this consult. Please refer to Dr. Hall's documentation for any further additions. Supervising Physician Co-Signing Physician Notes Attending addendum: I have physically seen this patient, have supervised the medical residents activities, and agree with the H&P unless as otherwise noted. Assessment and Plan: Acute cholecystitis- Admitted to surgical service Dr. Grover Murguia Von Willebrand disease- Desmopressin IV prior to surgery CBC with differential and chemistry profile every morning GERD- Change omeprazole to pantoprazole per formulary interchange Migraine- Substitute sumatriptan as needed Depression/anxiety-- Continue escitalopram We will follow during hospital stay History of Present Illness History of Present Illness Niyah Goodson is a 50-year-old female with PMH of von Willebrand's, depression/anxiety, migraines, GERD who comes in due to abdominal pain radiating to her back. She has had a total of about 4 episodes this month. She has also had associated nausea but no vomiting. Upon arrival to the ED, she had two doses of IV morphine, which helped with the pain. Nausea resolved with a dose of IV Zofran. CT A/P showed a distended gallbladder with gallbladder wall thickening or pericholecystic edema. An ultrasound of the gallbladder was then ordered and showed findings compatible with acute cholecystitis. Currently, patient stating that her pain is well controlled. No current n/v, CP, palp, SOB, cough, dizziness, CRAIG. She will be admitted for cholecystectomy in the AM. Hospitalist team consulted for medical management of chronic issues. Allergies Allergy/AdvReac Type Severity Reaction Status Date / Time hydromorphone Allergy Intermediate "FELT LIKE Verified 09/25/21 20:39 SKIN WAS CRAWLING" Home Medications Medication Instructions Recorded Confirmed Type naproxen sodium 550 mg tablet 550 mg PO BID PRN #60 tab 06/16/20 09/25/21 Rx diazepam 5 mg tablet 5 mg PO DAILY PRN #10 tab 12/24/20 09/25/21 Rx sumatriptan succinate 6 mg/0.5 mL 6 mg SUBCUT .COMPLEX 30 Days #1 ml 12/25/20 09/25/21 Rx subcutaneous pen injector escitalopram oxalate 20 mg tablet 40 mg PO HS 30 Days #180 tab 03/02/21 09/25/21 Rx mirabegron 50 mg tablet,extended 50 mg PO HS #90 tab 08/24/21 09/25/21 Rx release 24 hr (Myrbetriq) rimegepant 75 mg disintegrating 75 mg PO DAILY PRN #8 tab 08/25/21 09/25/21 Rx tablet (Nurtec ODT) fremanezumab-vfrm 225 mg/1.5 mL 675 mg SUBCUT Q3MO 90 Days #4.5 ml 09/10/21 09/25/21 Rx subcutaneous syringe (Ajovy Syringe) norethindrone (contraceptive) 0.35 0.35 mg PO HS 09/25/21 09/25/21 History mg tablet omeprazole 20 mg capsule,delayed 20 mg PO HS 09/25/21 09/25/21 History release Patient History Medical History (Updated 09/26/21 @ 18:11 by Catherine Grossman PA-C) Anxiety disorder Depressive disorder Frequent UTI History of nephrolithiasis History of nephrolithotomy with removal of calculi Left History of nipple discharge Right -- breast bx benign Kidney stones Migraine Neck pain Nephrolithiasis Occipital neuralgia TMJ (temporomandibular joint syndrome) NEVER LOCKS Von Willebrand's disease Pt reports she had bruising and blood in her eye 20+ years ago, prompting testing. Has had DDAVP with previous surgeries and childbirth. Was told it is 'mild.' Had ESWL at [facility] [place] 2013 and was given DDAVP pre-op. Surgical History H/O LEEP History of bladder surgery bladder sling History of breast biopsy History of colposcopy History of cystoscopy History of lithotripsy History of tonsillectomy History of tooth extraction Family History Father Family history of prostate cancer Family history of skin cancer Cancer Mother Family history of skin cancer Asthma Diabetes Other Nephrolithiasis Social History Smoking Status: Never smoker Second Hand Exposure: Yes (hx); Hx Alcohol Use: Yes Alcohol type: wine Hx Substance Use: No Preferred Language: Beninese Communication Ability: Effective Visual Impairment: No Limitations Hearing Ability: Normal Dye Worker Required: No Beliefs That Will Affect Care: None marital status: Current Living Situation: Spouse current occupational status: 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 NAD. HEENT: PERRL, EOMI. Moist mucous membranes. NECK: No JVD. No lymphadenopathy. CHEST/LUNGS: CTAB A/P. No crackles, wheezes, rales, rhonchi. HEART: RRR. No m/g/r. No carotid bruits. ABDOMEN: NT/ND, soft. BS+ x4. EXTREMITIES: No cyanosis, no clubbing, no edema SKIN: Warm and dry. No rashes or lesions. PSYCHIATRIC: Euthymic affect, no SI, no pressured speech, no hallucinations NEUROLOGIC: No FND. CN II-XII grossly intact. Results & Data Results & Data ([facility]) Vital Signs (Past 12 Hours) Vital Signs Temp Pulse Pulse Resp BP BP Pulse Ox 09/25/21 23:25 80 18 133/93 94 09/25/21 21:17 36.7 C 88 16 161/102 H 98 09/25/21 19:32 84 17 155/103 H 97 09/25/21 18:42 36.6 C 84 84 H 180/106 H 96 Resident Activity Tracking Resident Involvement: Resident Care Provided Care Provided: Adult [facility] (1) Depression Depression Type: other depression Qualified Code(s): F32.89 - Other specified depressive episodes (2) Migraine Intractability: not intractable Migraine type: other Status migrainosus presence: without status migrainosus Qualified Code(s): G43.809 - Other migraine, not intractable, without status migrainosus
[2021-09-26] MEDS ORDERED: PROMETHAZINE HCL 12.5 MG in SODIUM CHLORIDE 0.9% 50 ML IV PRN ×2 (00:38→10:54)
[2021-09-26] MEDS ORDERED: ONDANSETRON INJ 2 MG/ML 2 ML VIAL IV PRN ×2 (00:38→10:54)
[2021-09-26] MEDS ORDERED: MoRPHine SULFATE 2 MG/ML CARP IV PRN (00:38)
[2021-09-26] MEDS ORDERED: MoRPHine SULFATE 4 MG/ML 1 ML CARP\\VIAL IV PRN (00:38)
[2021-09-26] MEDS: SODIUM CHLORIDE 0.9% 1000ML 1,000 ML IV SCH ×2 (00:53→13:20)
[2021-09-26] MEDS ORDERED: LORazepam 0.5 MG TAB PO STA (01:16)
[2021-09-26] MEDS ORDERED: LORazepam 2 MG/1 ML VIAL IV STA (01:29)
[2021-09-26] MEDS ORDERED: DESMOPRESSIN ACETATE 20 MCG in SODIUM CHLORIDE 0.9% 50 ML IV SCH (06:00)
--- NOTE | 2021-09-26 06:37 | History & Physical Bridge Note ---
Date of Service September 26, 2021 History & Physical Bridge Note I have examined the patient, reviewed the History & Physical and in the interval since the performance of the History & Physical I have noted the following changes of clinical significance: no changes noted
--- NOTE | 2021-09-26 08:59 | Anesthesiology Consultation ---
Date of Service September 26, 2021 Assessment & Plan Chart Review Chart Review: Acceptable Risk for Surgery and Patient NOT seen in Pre Admission Testing Consults Requested none ASA [id number] Proposed Anesthesia Anesthesia Type: General History Surgery Operation Date: 09/26/21 10:00 Proposed Procedures p Laparoscopic Cholecystectomy - Grover Murguia MD, FACS Height/Weight Height: 5 ft 1 in Weight: 73.8 kg Allergies Allergy/AdvReac Type Severity Reaction Status Date / Time hydromorphone Allergy Intermediate "FELT LIKE Verified 09/25/21 20:39 SKIN WAS CRAWLING" Medications Home Medications Medication Instructions Recorded Confirmed Last Taken naproxen sodium 550 mg tablet 550 mg PO BID PRN #60 tab 06/16/20 09/25/21 Unknown diazepam 5 mg tablet 5 mg PO DAILY PRN #10 tab 12/24/20 09/25/21 Unknown sumatriptan succinate 6 mg/0.5 mL 6 mg SUBCUT .COMPLEX 30 Days #1 ml 12/25/20 09/25/21 Unknown subcutaneous pen injector escitalopram oxalate 20 mg tablet 40 mg PO HS 30 Days #180 tab 03/02/21 09/25/21 09/24/21 mirabegron 50 mg tablet,extended 50 mg PO HS #90 tab 08/24/21 09/25/21 09/24/21 release 24 hr (Myrbetriq) rimegepant 75 mg disintegrating 75 mg PO DAILY PRN #8 tab 08/25/21 09/25/21 Unknown tablet (Nurtec ODT) fremanezumab-vfrm 225 mg/1.5 mL 675 mg SUBCUT Q3MO 90 Days #4.5 ml 09/10/21 09/25/21 Unknown subcutaneous syringe (Ajovy Syringe) norethindrone (contraceptive) 0.35 0.35 mg PO HS 09/25/21 09/25/21 09/24/21 mg tablet omeprazole 20 mg capsule,delayed 20 mg PO HS 09/25/21 09/25/21 09/24/21 release Active Medications Generic Name Dose Route Start Last Admin Trade Name Freq PRN Reason Stop Dose Admin Cefoxitin Sodium 1,000 mg/ 60 mls @ 100 mls/hr 09/26/21 06:00 09/26/21 06:27 Dextrose IV 10/06/21 05:59 Infused Q6H MANSI Infusion Sodium Chloride 1,000 mls @ 80 mls/hr 09/26/21 00:38 09/26/21 06:27 Nss 1000ml IV 10/26/21 00:37 80 mls/hr .[id number] MANSI Infusion Miscellaneous 1 ea 09/26/21 08:00 09/26/21 07:34 Norethindrone (Contraceptive) 0.35 Mg - Order Awaiting Action N/A 10/26/21 07:59 Not Given QS MANSI Morphine Sulfate 4 mg 09/26/21 00:38 09/26/21 05:42 Morphine Sulfate 4 Mg/Ml 1 Ml Carp\\Vial IV 10/10/21 00:37 4 mg Q3HWA PRN Administration SEVERE Pain (Scale 7,8,9,10) Past Medical History Medical History Anxiety disorder Depressive disorder Frequent UTI History of nephrolithiasis History of nephrolithotomy with removal of calculi Left History of nipple discharge Right -- breast bx benign Kidney stones Migraine Neck pain Nephrolithiasis Occipital neuralgia TMJ (temporomandibular joint syndrome) NEVER LOCKS Von Willebrand's disease Pt reports she had bruising and blood in her eye 20+ years ago, prompting testing. Has had DDAVP with previous surgeries and childbirth. Was told it is 'mild.' Had ESWL at [facility] [place] 2013 and was given DDAVP pre-op. Exercise / Class Metabolic Activity II 4-5 Yardwork/Stairs/Walk up hill Past Family History Family History Father Family history of prostate cancer Family history of skin cancer Cancer Mother Family history of skin cancer Asthma Diabetes Other Nephrolithiasis Past Surgical History Surgical History H/O LEEP History of bladder surgery bladder sling History of breast biopsy History of colposcopy History of cystoscopy History of lithotripsy History of tonsillectomy History of tooth extraction Past Anesthesia History No Hx of Anesthesia Complications and No Family Hx of Anesthesia Complications History of PONV No Hx of PONV and No Hx of Motion Sickness Social History Smoking Status: Never smoker Hx Alcohol Use: Yes Alcohol type: wine alcohol intake frequency: holidays/special occasions only Hx Substance Use: No substance use type: does not use Physical Exam Vital Signs Last Vital Signs Temp 36.7 C 09/26/21 07:52 Pulse 68 09/26/21 07:52 Resp 16 09/26/21 07:52 BP 96/65 L 09/26/21 07:52 Pulse Ox 95 09/26/21 00:20 Testing Laboratory Results 09/25/21 19:35 09/25/21 19:35 Urine Color Yellow 09/25/21 19:35 Urine Appearance Clear (Clear) 09/25/21 19:35 Urine pH 7.0 (4.5-7.5) 09/25/21 19:35 Ur Specific [place] 1.019 (1.000-1.030) 09/25/21 19:35 Urine Protein Negative (Negative) 09/25/21 19:35 Urine Glucose (UA) Negative (Negative) 09/25/21 19:35 Urine Ketones Negative (Negative) 09/25/21 19:35 Urine Nitrite Negative (Negative) 09/25/21 19:35 Ur Leukocyte Esterase 2+ (Negative) H 09/25/21 19:35 Urine WBC (Auto) >30 /hpf (0-5) H 09/25/21 19:35 Urine RBC (Auto) 0-4 /hpf (0-4) 09/25/21 19:35 U Hyaline Cast (Auto) 1-5 /lpf (0-5) 09/25/21 19:35 U Epithel Cells (Auto) >30 /lpf (0-5) H 09/25/21 19:35 Urine Bacteria (Auto) 1+ (Negative) H 09/25/21 19:35 Electrocardiogram Date: 08/31/18 Findings: + NSR @ (at 81)
[2021-09-26] MEDS ORDERED: PROPOFOL IV EMULSION 10 MG/ML 20 ML VIAL IV ONE (09:05)
[2021-09-26] MEDS ORDERED: ROCURONIUM BROMIDE 10 MG/ML 5 ML VIAL IV ONE (09:05)
[2021-09-26] MEDS ORDERED: fentaNYL citrate 100 MCG/2 ML VIAL ONE ×2 (09:05→11:01)
[2021-09-26] MEDS ORDERED: LIDOCAINE 2% 2 ML VIAL/AMP(20MG/ML) INFIL ONE (09:05)
[2021-09-26] MEDS ORDERED: MIDAZOLAM HCL 1 MG/ML 2ML VIAL ONE (09:05)
[2021-09-26] MEDS ORDERED: ONDANSETRON INJ 2 MG/ML 2 ML VIAL ONE (09:08)
[2021-09-26] MEDS ORDERED: DEXAMETHASONE SOD INJ 4 MG/ML VIAL ONE (09:08)
[2021-09-26] MEDS ORDERED: GLYCOPYRROLATE 0.2 MG/ML VIAL ONE (09:08)
[2021-09-26] MEDS ORDERED: NEOSTIGMINE METHYLSULFATE 1 MG/ML 10ML VIAL ONE (09:08)
[2021-09-26] MEDS ORDERED: ACETAMINOPHEN 1000 MG/100 ML IV IV ONE (09:09)
[2021-09-26] MEDS ORDERED: FAMOTIDINE/PF 20 MG/2 ML VIAL IV ONE (09:09)
[2021-09-26] MEDS ORDERED: BUPIVACAINE 0.5 % 5 MG/1 ML MPF 30ML VIAL ONE (09:10)
--- NOTE | 2021-09-26 09:41 | Communication Note ---
Date of Service: September 26, 2021 Patient waives a test prior to surgery. She denies the possibility of being . Witnesses to her verbal statement are Rosario Polanco RN and Klarissa Raya CRNA.
[2021-09-26] MEDS ORDERED: ACETAMINOPHEN 1,000 MG/100 ML VIAL IV ONE (10:38)
--- NOTE | 2021-09-26 10:38 | Post Operative Brief Note ---
PG Immediate Post Op with CF Date of Surgery September 26, 2021 Pre & Post Diagnosis Operation Date: 09/26/21 10:00 Pre-Op Diagnosis: Acute Cholecystitis Post-Op Diagnosis: Acute Cholecystitis, adhesions I identified the patient and participated in the time-out.: Yes Procedure Operation Date: 09/26/21 10:00 Actual Procedures p Laparoscopic Cholecystectomy(Not Applicable) - Grover Murguia MD, FACS Surgeon Grover Murguia MD, FACS Manual Lathe Machinist Miguel Fernando Estimated Blood Loss 10 Findings Consistent with Post-Op Diagnosis Patient had acute and chronic adhesions of the duodenum and colon and omentum to the gallbladder Specimens Specimen Description: A. Gallbladder
[2021-09-26] MEDS ORDERED: fentaNYL citrate 100 MCG/2 ML VIAL IV PRN (10:54)
[2021-09-26] MEDS ORDERED: NALOXONE HCL 0.4 MG/1 ML VIAL/CARP IV PRN (10:54)
[2021-09-26] MEDS ORDERED: LABETALOL HCL IV 5 MG/ML 20ML IV PRN (10:54)
[2021-09-26] MEDS ORDERED: ATROPINE SULFATE 0.1 MG/ML 10ML SYR IV PRN (10:54)
[2021-09-26] MEDS ORDERED: ePHEDrine sulfate 50 MG/ML AMP IV PRN (10:54)
[2021-09-26] MEDS ORDERED: FLUMAZENIL 0.1 MG/1 ML 10 ML VIAL IV PRN (10:54)
--- NOTE | 2021-09-26 11:34 | Anesthesiology Progress Note ---
Date of Service September 26, 2021 Anesthesia Post Procedure Vital Signs Vital Signs: Temp Pulse Pulse Pulse Resp BP BP 09/26/21 11:20 36.4 C L 73 20 113/69 09/26/21 11:10 89 20 143/81 H 09/26/21 11:00 91 H 24 133/94 09/26/21 10:52 36.1 C L 93 H 22 135/82 09/26/21 07:52 36.7 C 68 16 96/65 L 09/26/21 00:20 36.8 C 73 16 133/88 09/26/21 00:11 77 16 132/75 09/25/21 23:25 80 18 133/93 09/25/21 21:17 36.7 C 88 16 161/102 H 09/25/21 19:32 84 17 155/103 H 09/25/21 18:42 36.6 C 84 84 H 180/106 H Pulse Ox 09/26/21 11:20 93 09/26/21 11:10 96 09/26/21 11:00 94 09/26/21 10:52 96 09/26/21 07:52 09/26/21 00:20 95 09/26/21 00:11 94 09/25/21 23:25 94 09/25/21 21:17 98 09/25/21 19:32 97 09/25/21 18:42 96 Pain Intensity Abdomen: Pain Intensity: 6 Transfer of Care Handoff Completed per policy Notes Mental Status: alert / awake / arousable Patient Amnestic to Procedure: Yes Nausea / Vomiting: adequately controlled Pain: adequately controlled Airway Patency, RR, SpO2: stable & adequate BP & HR: stable & adequate Hydration State: stable & adequate Anesthetic Complications: no major complications apparent
[2021-09-26] MEDS ORDERED: ACETAMINOPHEN 325 MG TAB PO PRN (11:45)
--- NOTE | 2021-09-26 12:08 | Operative Report (OR) ---
DATE OF OPERATION: 09/26/2021. NAME OF OPERATION: Laparoscopic cholecystectomy with lysis of adhesions. PREOPERATIVE DIAGNOSIS: Acute cholecystitis. POSTOPERATIVE DIAGNOSIS: Acute cholecystitis with chronic adhesions. STAFF SURGEON: Grover Murguia MD AVIATION TACTICAL READINESS OFFICER: Homero Fernando PA-C ANESTHESIA: General. DESCRIPTION OF PROCEDURE: The patient was brought in the operating room and placed on the operating table in supine position. Her abdomen was prepped and draped in the usual fashion. Pneumatic stocki ngs and orogastric tube were placed. My assistant produce manager helped with prepping, draping, removal of the gall bladder and closure of the wounds. A 0.5% plain Marcaine was used to anesthetize all incisions. Inc ision was made above the umbilicus, carrying dissection down to the fascia, placing a Veress needle p roducing pneumoperitoneum. Under visualization through a 11 mm port placed at the umbilical site, th ree 5 mm ports were placed, one cephalad and two laterally, all under visualization. Gallbladder was very thick and inflamed. It was aspirated of bile. It was retracted. There were chronic adhesions of the colon, duodenum and omentum to the gallbladder. These were taken down. Dissection carried o ut to the sheila hepatis, identifying the cystic duct and cystic artery. These were clipped and trans ected. The gallbladder was then dissected away from the liver bed in the usual fashion. It was plac ed in an Endobag. After appropriate hemostasis and irrigation, the Endobag was removed through the u mbilical site. I did have to enlarge the fascial defect to remove the large gallbladder, which was v breanna edematous. All ports were then removed. Fascia at the umbilicus closed using interrupted 0 PDS suture. The skin was reapproximated using subcuticular 4-0 Monocryl with Dermabond. The patient was transferred to recovery room in stable condition. Job ID: [id number]
[2021-09-26] MEDS ORDERED: SODIUM CHLORIDE 0.9% 500 ML IV ONE (13:15)
[2021-09-26 14:25] LABS: Basophils # (auto) 0.02 K/uL (0-0.2); Basophils % (auto) 0.2 %; Eosinophils # (auto) 0.04 K/uL (0-0.5); Eosinophils % (auto) 0.3 %; Hematocrit (blood only) 37.3 % (37-47); Hemoglobin 12.1 g/dL (12.0-16.0); Immature Granulocytes # (auto) 0.02 K/uL (0.00-0.02); Immature Granulocytes % (auto) 0.2 %; Lymphocytes # (auto) 0.63 K/uL (1.2-3.4); Lymphocytes % (auto) 5.2 %; Mean Corpuscular Hemoglobin 29.4 pg (25-34); Mean Corpuscular Volume 90.5 fL (80-100); Mean Platelet Volume 10.2 fL (7.4-10.4); Monocytes # (auto) 0.15 K/uL (0.11-0.59); Monocytes % (auto) 1.2 %; Neutrophils # (auto) 11.31 K/uL (1.4-6.5); Neutrophils % (auto) 92.9 %; Platelet Count 270 K/uL (130-400); RDW Coefficient of Variation 14.9 % (11.5-14.5); RDW Standard Deviation 49.4 fL (36.4-46.3); Red Blood Count 4.12 M/uL (4.2-5.4); White Blood Count 12.17 K/uL (4.8-10.8)
[2021-09-26 14:27] LABS: Mean Corpuscular Hgb Conc 32.4 g/dL (32-36)
--- NOTE | 2021-09-26 18:14 | Hospitalist Progress Note ---
Date of Service September 26, 2021 Assessment & Plan (1) Acute cholecystitis: Plan: S/p lap ann today w/ Dr. Murguia Diet as per general surgery Limit opioid pain medications due to hypotension, d/c Morphine Postop antibiotics per surgery (2) Postoperative hypotension: Plan: Placed in Trendelenburg and ordered 500 cc bolus of NSS Pressure has improved to 93/64 as of most recent vital signs recorded at 1500 Suspect that this is all related to anesthesia Stat postop CBC obtained due to her history of von Willebrand's and H&H is stable (3) Postoperative hypoxia: Plan: Likely related to general anesthesia Recommend use of incentive spirometer every hour while awake Wean O2 as able to maintain pulse ox greater than 90% Anticipate improvement as effects of general anesthesia wear off (4) Hypothyroid: Plan: Documented as a problem, however last TSH from 09/02/2018 was 4.950 Obtain updated TSH in AM (5) Depression: Plan: Continue Lexapro (6) Anxiety: Plan: As per #4 (7) Von Willebrands disease: Plan: Received desmopressin prior to going to the OR Repeat CBC tomorrow morning Plan: Interventions as outlined above. Stop morphine as to not exacerbate hypotension. May continue immediate release Oxy for pain control, however would favor use of acetaminophen as first-line and only utilize the lowest effective dose of OxyIR. Continue maintenance dose fluids for now, likely can cap in AM as effects of general anesthesia wear off. Wean O2. Follow-up labs in the morning. Above plan of care discussed with Dr. Walsh. Admission and Anticipated Discharge Date Admission Date: September 25, 2021 Subjective Patient seen on rounds this afternoon following her lap ann with Dr. Murguia d/t acute cholecystitis. Pt tolerated procedure well, no immediate complications. Pt does have a h/o von willebrand's, she received desmopressin prior to OR. Alerted by RN that she was hypotensive at 86/46 and hypoxic. Pt has a prior h/o "trouble coming out of anesthesia" per her mother. She is currently awake/alert, has no complaints of dizziness/lightheadedness, shortness of breath, or chest pain. She has mild abdominal soreness. She tolerated lunch. Review of Systems Review of Systems: CONSTITUTIONAL: Denies weight loss/gain, fever and chills, fatigue, malaise, generalized weakness. HEENT: Denies changes in vision and hearing. RESPIRATORY: Denies SOB, cough, wheezing. CV: Denies palpitations, CP, lower extremity edema, orthopnea, PND. GI: +belly soreness. Denies nausea, vomiting and diarrhea. : Denies dysuria and urinary frequency, urgency, hesitancy. MUSCULOSKELETAL: Denies myalgia and joint pain. SKIN: Denies rash and pruritus. NEUROLOGICAL: +drowsy. Denies headache, syncope, focal weakness, numbness, tingling. PSYCHIATRIC: Denies recent changes in mood. Denies anxiety and depression. Physical Exam Physical Exam: GENERAL: 50 yo well-developed, well-nourished. NAD. LUNGS: Clear to auscultation bilaterally. No W/R/R. CARDIOVASCULAR: Regular rate and rhythm. No M/G/R. No JVD. ABDOMEN: Soft, mild incisional tenderness, non-distended. BS normal x 4 quad. EXTREMITIES: No edema. Non-tender. Peripheral pulses +2/4. NEUROLOGIC: A&O x3. PSYCHIATRIC: Cooperative. Appropriate mood and affect. SKIN: Warm, dry, intact. No rashes or lesions. Results & Data Results & Data ([facility]) Vital Signs (Past 12 Hours) Vital Signs Temp Pulse Pulse Pulse Resp BP BP 09/26/21 15:05 36.6 C 68 16 93/64 L 09/26/21 14:40 36.3 C L 67 18 100/63 09/26/21 13:40 36.3 C L 72 18 101/62 09/26/21 12:39 36.7 C 84 16 98/65 L 09/26/21 12:22 36.7 C 75 14 86/56 L 09/26/21 11:40 36.7 C 75 14 98/68 L 09/26/21 11:20 36.4 C L 73 20 113/69 09/26/21 11:10 89 20 143/81 H 09/26/21 11:00 91 H 24 133/94 09/26/21 10:52 36.1 C L 93 H 22 135/82 09/26/21 07:52 36.7 C 68 16 96/65 L Pulse Ox 09/26/21 15:05 93 09/26/21 14:40 93 09/26/21 13:40 92 09/26/21 12:39 93 09/26/21 12:22 92 09/26/21 11:40 94 09/26/21 11:20 93 09/26/21 11:10 96 09/26/21 11:00 94 09/26/21 10:52 96 09/26/21 07:52 Laboratory Results 09/26/21 14:06 09/25/21 19:35 PG Care Time/CCT Total # of Minutes Spent Total Time Spent with Patient: Total time spent is greater than 50% in coordination of care (as documented) at patient's floor/unit and/or counseling patient: Coding Level of Care Code 39816 Subseq Hosp Care Lvl 3 Diagnoses Acute cholecystitis K81.0 Hypothyroid E03.9 Hypothyroidism type: acquired Depression F32.89 Depression Type: other depression Anxiety F41.9 Von Willebrands disease D68.0 Postoperative hypotension I95.81 Postoperative hypoxia R09.02; Z98.890 (1) Hypothyroid Hypothyroidism type: acquired Qualified Code(s): E03.9 - Hypothyroidism, unspecified (2) Depression Depression Type: other depression Qualified Code(s): F32.89 - Other specified depressive episodes
[2021-09-26] MEDS: oxyCODONE HCL IR 5 MG TAB (IMMEDIATE RELEASE) PO PRN (19:26)
--- NOTE | 2021-09-26 20:47 | Billing Data ---
Date of Service September 26, 2021 Coding Level of Care Code 84120 Inpt Consult Level 3
[2021-09-26] MEDS ORDERED: ESCITALOPRAM OXALATE 20 MG TAB PO SCH (21:00)
[2021-09-26] MEDS ORDERED: MIRABEGRON ER 25 MG TAB PO SCH (21:00)
[2021-09-26] MEDS ORDERED: PANTOprazole 40 MG TAB PO SCH (21:00)
[2021-09-26] MEDS: RIMEGEPANT 75 MG PO PRN (21:33)
[2021-09-27] MEDS ORDERED: RIMEGEPANT 75 MG PO ONE (01:27)
[2021-09-27] MEDS: RIMEGEPANT 75 MG PO PRN (01:34)
[2021-09-27] MEDS: oxyCODONE HCL IR 5 MG TAB (IMMEDIATE RELEASE) PO PRN (01:35)
[2021-09-27] MEDS: SODIUM CHLORIDE 0.9% 1000ML 1,000 ML IV SCH (01:38)
[2021-09-27 08:13] LABS: Basophils # (auto) 0.01 K/uL (0-0.2); Basophils % (auto) 0.1 %; Eosinophils # (auto) 0.01 K/uL (0-0.5); Eosinophils % (auto) 0.1 %; Hematocrit (blood only) 33.1 % (37-47); Immature Granulocytes # (auto) 0.02 K/uL (0.00-0.02); Immature Granulocytes % (auto) 0.2 %; Lymphocytes # (auto) 1.36 K/uL (1.2-3.4); Lymphocytes % (auto) 12.9 %; Mean Corpuscular Hemoglobin 29.4 pg (25-34); Mean Corpuscular Hgb Conc 33.2 g/dL (32-36); Mean Corpuscular Volume 88.5 fL (80-100); Mean Platelet Volume 10.1 fL (7.4-10.4); Monocytes # (auto) 0.73 K/uL (0.11-0.59); Monocytes % (auto) 6.9 %; Neutrophils # (auto) 8.44 K/uL (1.4-6.5); Neutrophils % (auto) 79.8 %; Platelet Count 270 K/uL (130-400); RDW Coefficient of Variation 14.5 % (11.5-14.5); RDW Standard Deviation 47.2 fL (36.4-46.3); Red Blood Count 3.74 M/uL (4.2-5.4); White Blood Count 10.57 K/uL (4.8-10.8)
[2021-09-27 08:42] LABS: BUN Creatinine Ratio 16.2 (10-20); Creatinine Clr Calc Pharmacy 81.7 ml/min; Est GFR (Non-African American) 93.1 ml/min; Potassium 3.6 mmol/L (3.5-5.1)
[2021-09-27] MEDS ORDERED: FUROSEMIDE INJ 20 MG/2 ML VIAL IV ONE (08:52)
--- NOTE | 2021-09-27 10:11 | Discharge Summary (DS) ---
DATE OF DISCHARGE: 09/27/2021. DATE OF ADMISSION: 09/25/2021. PRINCIPAL DIAGNOSIS: Acute cholecystitis. PROCEDURE: The patient underwent laparoscopic cholecystectomy. HISTORY OF PRESENT ILLNESS: The patient is a 50-year-old female presenting to the Emergency Room wit h acute abdominal pain and found to have evidence of gallbladder wall thickening. She was taken to t operating room where she underwent laparoscopic cholecystectomy showing severe acute cholecystitis with chronic adhesions. She has done well from her surgery, progressed well and was felt stable for discharge today and will be following the surgical clinic within 1-2 weeks. Job ID: [id number]
--- NOTE | 2021-09-27 11:02 | Hospitalist Progress Note ---
Date of Service September 27, 2021 Assessment & Plan (1) Acute cholecystitis: Plan: S/p lap ann today w/ Dr. Murguia Diet as per general surgery Limit opioid pain medications due to hypotension, d/c Morphine Postop antibiotics per surgery (2) Postoperative hypotension: Plan: RESOLVED (all secondary to anesthesia) (3) Postoperative hypoxia: Plan: RESOLVED (all secondary to anesthesia) (4) Hypothyroid: Plan: Documented as a problem, however last TSH from 09/02/2018 was 4.950 Obtained TSH this morning and is WNL, thus no need for supplementation at this time (5) Depression: Plan: Continue Lexapro (6) Anxiety: Plan: As per #4 (7) Von Willebrands disease: Plan: Received desmopressin prior to going to the OR Repeat CBC this morning is stable Plan: This morning noted to have a sodium of 129, this is likely dilutional do the amount of IV crystalloid that she received postoperatively in due to her hypotension. At this time we will give her dose of IV Lasix 20 mg x 1 dose, her IV fluids have been discontinued. She is otherwise stable from a medical perspective for discharge. Thank you for allowing us to participate in the care of your patient, will sign off at this time. Above plan of care will be discussed with Dr. Castrejon. Admission and Anticipated Discharge Date Admission Date: September 25, 2021 Subjective Patient seen on daily rounds this morning. She is resting comfortably in bed, voices no complaints or concerns at this time. She has been weaned off of supplemental oxygen. Blood pressure improved. She denies chest pain, shortness of breath, abdominal pain, nausea or vomiting. She is tolerating oral intake. Review of Systems Review of Systems: CONSTITUTIONAL: Denies weight loss/gain, fever and chills, fatigue, malaise, generalized weakness. HEENT: Denies changes in vision and hearing. RESPIRATORY: Denies SOB, cough, wheezing. CV: Denies palpitations, CP, lower extremity edema, orthopnea, PND. GI: +belly soreness. Denies nausea, vomiting and diarrhea. : Denies dysuria and urinary frequency, urgency, hesitancy. MUSCULOSKELETAL: Denies myalgia and joint pain. SKIN: Denies rash and pruritus. NEUROLOGICAL: Denies headache, syncope, focal weakness, numbness, tingling. PSYCHIATRIC: Denies recent changes in mood. Denies anxiety and depression. Physical Exam Physical Exam: GENERAL: 50 yo well-developed, well-nourished. NAD. LUNGS: Clear to auscultation bilaterally. No W/R/R. CARDIOVASCULAR: Regular rate and rhythm. No M/G/R. No JVD. ABDOMEN: Soft, mild incisional tenderness, non-distended. BS normal x 4 quad. EXTREMITIES: No edema. Non-tender. Peripheral pulses +2/4. NEUROLOGIC: A&O x3. PSYCHIATRIC: Cooperative. Appropriate mood and affect. SKIN: Warm, dry, intact. No rashes or lesions. Results & Data Results & Data ([facility]) Vital Signs (Past 12 Hours) Vital Signs Temp Pulse Resp BP Pulse Ox 09/27/21 08:09 36.6 C 72 16 112/69 91 09/27/21 02:49 36.4 C L 66 16 102/60 90 09/26/21 23:10 36.7 C 79 16 110/64 92 Laboratory Results 09/27/21 07:52 09/27/21 07:52 PG Care Time/CCT Total # of Minutes Spent Total Time Spent with Patient: Total time spent is greater than 50% in coordination of care (as documented) at patient's floor/unit and/or counseling patient: Coding Level of Care Code 91997 Subseq Hosp Care Lvl 2 Diagnoses Acute cholecystitis K81.0 Postoperative hypotension I95.81 Postoperative hypoxia R09.02; Z98.890 Hypothyroid E03.9 Hypothyroidism type: acquired Depression F32.89 Depression Type: other depression Anxiety F41.9 Von Willebrands disease D68.0 (1) Hypothyroid Hypothyroidism type: acquired Qualified Code(s): E03.9 - Hypothyroidism, unspecified (2) Depression Depression Type: other depression Qualified Code(s): F32.89 - Other specified depressive episodes
== END 2021-09-27 13:02 | disposition home or self-care (01) ==
LOC: ED 18:40 → 3W 23:10 → INTOOBSV 23:10 → 3W 09-26 00:10